=== PATIENT | male | born 1955 | race Caucasian/White ===

== ENCOUNTER 2020-01-11 16:53 | Observation (INO) | payer MEDICARE, MEDICAID, SELFPAY ==
--- NOTE | ~2020-01-11 | XR_ITS ---
EXAMINATION: XR hip BI 2V w AP pelvis DATE: 01/11/2020 19:46 INDICATION: Bilateral hip pain TECHNIQUE: AP view the pelvis and two views of each hip were obtained. COMPARISON: 11/15/2019 FINDINGS: There are changes of right total hip arthroplasty. There is no evidence of hardware failure or loosening. There is severe left hip osteoarthritis. No acute osseous abnormality is identified. B one alignment is normal. A Lange catheter is noted. The soft tissues are unremarkable. IMPRESSION: 1. Severe left hip osteoarthritis and changes of total right hip arthroplasty without acute abnormali ty. Reviewed, dictated and finalized at location A. GRADER IMPRESSION: 1. Severe left hip osteoarthritis and changes of total right hip arthroplasty w ithout acute abnormality.
[2020-01-11 16:54] VITALS: BP 124/87; PULSE 118; RESP 18; TEMP 36.8; O2SAT 99
--- NOTE | 2020-01-11 17:16 | ED.NAVMDI ---
HPI - Nausea/Vomiting/Diarrhea General Chief complaint: Nausea/Vomiting/Diarrhea Stated complaint: diarrhea Time Seen by Provider: 01/11/20 17:14 Source: patient and family Mode of arrival: EMS Limitations: no limitations History of Present Illness HPI Narrative: The pt is a 64 y/o male who presents to the ED, via EMS, c/o diarrhea. Pt states that he was sent to [facility] for rehabilitation following being at this hospital for his LLE giving out on him persistently. Pt states that he was having diarrhea prior to that, and states that it was eventually tested positive for C. diff. Pt's family states that he lost 10 days of therapy due to the infection, and he left today after his Medicaid ran out. Pt states that he now lives in independent living. His family also notes that the pt now has a catheter. Pt states that he had four episodes of diarrhea yesterday and four episodes today; he notes that he had been put on antibiotics for some time prior to leaving [facility], but discontinued this 2 days ago. Pt's family reports cloudy urine, and the pt notes that he is still experiencing issues with his LLE, with him being unable to get up from the toilet because of it. Pt denies ABD pain, N/V, fever, blood in stools, and lightheadedness. MD elicited complaint: diarrhea Onset (ago): unknown Associated nausea: No Associated abdominal pain: No Associated symptoms: other (LLE giving out on him, cloudy urine (Per pt's family)) Treatment prior to arrival: other (Antibiotics) Related Data Home Medications Medication Instructions Recorded Confirmed alfuzosin 10 mg tablet,extended 10 mg PO DAILY 10/16/19 01/11/20 release 24 hr finasteride 5 mg tablet 5 mg PO DAILY 10/16/19 01/11/20 mirabegron 50 mg tablet,extended 50 mg PO DAILY 10/16/19 01/11/20 release 24 hr triamcinolone acetonide 0.1 % 1 applic TOPICAL BID 10/16/19 01/11/20 topical ointment simvastatin 20 mg PO DAILY 11/23/19 01/11/20 acetaminophen 650 mg PO PRN PRN 01/11/20 01/11/20 triamcinolone acetonide 1 applic TOPICAL BID PRN 01/11/20 01/11/20 Allergies Allergy/AdvReac Type Severity Reaction Status Date / Time rivaroxaban [From Xarelto] AdvReac Other Verified 01/11/20 17:00 Review of Systems Review of Systems: All systems reviewed & are unremarkable except as noted in HPI and below Constitutional: Constitutional: Denies fever(s) Gastrointestinal: Gastrointestinal: Denies abdominal pain, Denies hematochezia, Reports diarrhea, Denies nausea and Denies vomiting Genitourinary: Genitourinary: Reports other (Cloudy urine (Per pt's family)) Neurologic: Reports other (Reports: LLE giving out on him; Denies: Lightheadedness) [facility] Past Medical History Medical History (Updated 01/11/20 @ 22:57 by Jadyn Evans MD) Anemia Asperger syndrome Chicken pox Chronic interstitial cystitis Frequent urinary tract infections Hyperlipidemia Hypertension Osteoarthritis Vitamin D deficiency Surgical History Surgical History History of bladder surgery History of right hip replacement History of tonsillectomy Social History Social History (Updated 01/11/20 @ 18:01 by Giovanni Boudreaux) Social History: The patient is single and lives with his father in independent living at [facility]. For quite some time he was ambulating with a cane due to chronic left hip pain, but is now ambulating with a walker as detailed above. His primary care providers Dr. Rachid Rios. He designates his sister, Karin Olivares, as his surrogate decision maker and he wishes to be a full code. He denies alcohol, tobacco, and drug use. Smoking status: Never smoker Alcohol intake: former Substance use: never Gender identity (if verbalized by the patient): Male Spiritual care concerns: No Agree to blood products: Yes Comments PCP: Dr. Rios Exam Narrative: Exam Narrative: GENERAL: Well-appearing, well-nourished,
[2020-01-11 17:56] VITALS: BP 122/83; BP 139/98; BP 142/89; PULSE 110; PULSE 116; PULSE 117
[2020-01-11 18:05] LABS: Basophils Absolute Auto 0.1 K/mm3 (0.0-0.1); Basophils Percent Auto 0.7 % (0.2-1.2); Eosinophils Absolute Auto 0.3 K/mm3 (0-0.3); Eosinophils Percent Auto 2.1 % (0-4.4); Hematocrit 38.1 % (42.0-52.0); Hemoglobin 11.8 g/dL (14.0-18.0); Immature Granulocyte Absolute 0.07 K/mm3 (0.00-0.031); Immature Granulocyte Percent A 0.5 % (0-0.5); Lymphocytes Absolute Auto 1.31 K/mm3 (0.9-3.2); Lymphocytes Percent Auto 10.1 % (18.3-44.2); Mean Corpuscular Hemoglobin 27.1 pg (26-34); Mean Corpuscular Volume 87.6 fl (80-100); Mean Platelet Volume 9.6 fl (7.4-10.4); Monocytes Absolute Auto 1.1 K/mm3 (0.1-0.6); Monocytes Percent Auto 8.3 % (2.6-8.5); Neutrophils Absolute Auto 10.2 K/mm3 (1.3-6.7); Neutrophils Percent Auto 78.3 % (45.5-73.1); Platelet Count Result 274 k/mm3 (150-375); Red Blood Count 4.35 M/mm3 (4.6-6.20); Red Cell Distribution Width 16.3 % (11.5-14.5)
[2020-01-11] MEDS: LACTATED RINGERS 1,000 ML 999 ML IV CONT (18:28)
[2020-01-11 18:40] LABS: Alanine Aminotransferase 23 U/L (4-50); Albumin Level 3.6 g/dL (3.5-5.1); Alkaline Phosphatase 186 U/L (38-126); Aspartate Amino Transferase 42 U/L (17-59); Bilirubin,Total 0.3 mg/dL (0.2-1.3); Blood Urea Nitrogen 15 mg/dL (9-20); Calcium 9.1 mg/dL (8.4-10.2); Carbon Dioxide 25 mmol/L (22-30); Chloride 101 mmol/L (98-107); Estimated CRCL calculation 61 ml/min; Estimated Glomerular Filt Rate > 60; Glucose 112 mg/dL (75-110); Potassium 3.7 mmol/L (3.4-5.0); Sodium 139 mmol/L (137-145)
--- NOTE | 2020-01-11 20:12 | PC.NURSE ---
pt unwilling to try to ambulate or transfer, family and pt, stated his left hip does not bear wt. pt reluctant, pt makes mention that he needs help, is unable to function in current condition.
[2020-01-11 20:14] VITALS: BP 146/84; PULSE 99; RESP 14; O2SAT 100
--- NOTE | 2020-01-11 22:22 | PC.NURSE ---
This patient, Lam James, was admitted to Medical Room 246-. Patient/family oriented to hospital policies and general routines including ID bracelet, bed and alarms, visiting hours, pain management, procedures, bathroom and other care routines, personal items, smoking policy, room service/diet, and visiting hours. Valuables list has been completed. Information on how to activate the Rapid Response Team has been discussed. Patient/Family are encouraged to report perceived risks to care and to ask questions if they do not understand what they are told or what they should do.
[2020-01-11 22:39] VITALS: BP 147/69; PULSE 88; RESP 18; TEMP 37; O2SAT 98
[2020-01-11 22:41] VITALS: BMI 30.1
--- NOTE | 2020-01-12 00:33 | PM.IMHP ---
H&P: HPI History of Present Illness Chief complaint: AMBULATORY DYSFUNCTION Narrative: This is a 64 year old male who is known to live at assisted living with his father and recently admitted to our hospitalist service and discharged 1 month ago after he was treated for acute renal failure and right lung pneumonia. He has been at [facility] where he is known to have developed diarrhea and tested positive for Clostridium difficile. The patient just finished a 10 day course of oral metronidazole two days ago. He continues to have diarrhea although he reports that the diarrhea is more formed then when he had c. diff. He denies any blood in his stool or abdominal pain. He also denies any fever, cough, chills, chest pain, or shortness of breath. He continues to have left hip pain and was previously ambulating altough now he cannot bear any weight on his left hip secondary to his advanced osteoarthritis. He is awaiting to have hip replacement surgery scheduled with Dr. Simmons but was told that he cannot have surgery until his kidney function normalizes. No other complaints tonight. Review of Systems Review of Systems: All systems reviewed & are unremarkable except as noted in HPI and below PMFSH Past Medical History Medical History Anemia Asperger syndrome Chicken pox Chronic interstitial cystitis Frequent urinary tract infections Hyperlipidemia Hypertension Osteoarthritis Vitamin D deficiency Surgical History Surgical History History of bladder surgery History of right hip replacement History of tonsillectomy Family History Family History Mother Family history of malignant neoplasm of esophagus, Onset Age: 76 Father CAD (coronary artery disease) Hypertension HLD (hyperlipidemia) Grandparent Cerebrovascular accident CAD (coronary artery disease) Kidney disease Social History Social History Social History: The patient is single and lives with his father in independent living at [facility]. For quite some time he was ambulating with a cane due to chronic left hip pain, but is now ambulating with a walker as detailed above. His primary care providers Dr. Rachid Rios. He designates his sister, Karin Olivares, as his surrogate decision maker and he wishes to be a full code. He denies alcohol, tobacco, and drug use. Smoking status: Never smoker Alcohol intake: former Substance use: never Gender identity (if verbalized by the patient): Male Spiritual care concerns: No Agree to blood products: Yes Meds Home Medications and Allergies Home Medications Medication Instructions Recorded Confirmed Type alfuzosin 10 mg tablet,extended 10 mg PO DAILY 10/16/19 01/11/20 History release 24 hr finasteride 5 mg tablet 5 mg PO DAILY 10/16/19 01/11/20 History mirabegron 50 mg tablet,extended 50 mg PO DAILY 10/16/19 01/11/20 History release 24 hr triamcinolone acetonide 0.1 % 1 applic TOPICAL BID 10/16/19 01/11/20 History topical ointment simvastatin 20 mg PO DAILY 11/23/19 01/11/20 History tolnaftate 1 applic TOPICAL Q12HR #45 gm 12/07/19 01/11/20 Rx acetaminophen 650 mg PO PRN PRN 01/11/20 01/11/20 History triamcinolone acetonide 1 applic TOPICAL BID PRN 01/11/20 01/11/20 History Allergies Allergy/AdvReac Type Severity Reaction Status Date / Time rivaroxaban [From Xarelto] AdvReac Other Verified 01/11/20 17:00 Vital Signs Vital Signs - 24 hr 01/11/20 16:54 01/11/20 17:56 01/11/20 20:14 Temperature 36.8 C Pulse Rate 118 H 117 H 99 Respiratory Rate 18 14 Blood Pressure 124/87 142/89 H 146/84 H Pulse Oximetry 99 100 01/11/20 22:39 Temperature 37.0 C Pulse Rate 88 Respiratory Rate 18 Blood Pressure 147/69 H Pulse Oximetry 98 Exam Const: Gen
[2020-01-12 05:50] VITALS: BP 116/57; PULSE 77; RESP 16; TEMP 36.8; O2SAT 97
[2020-01-12] MEDS: FINASTERIDE 5 MG TABLET PO (09:28)
[2020-01-12] MEDS: SIMVASTATIN 20 MG TABLET PO (09:28)
[2020-01-12] MEDS: MIRABEGRON 25 MG ER TABLET 50 MG PO (09:28)
[2020-01-12] MEDS: TRIAMCINOLONE ACET 0.1% OINT 15 GM TUBE 1 APPLIC TOPICAL ×2 (09:28→16:45)
[2020-01-12] MEDS: TOLNAFTATE 1% POWDER 45 GM BTL 1 APPLIC TOPICAL ×2 (09:28→20:52)
--- NOTE | 2020-01-12 11:35 | PM.IMPN ---
Progress Note: A&P Assessment and Plan (1) Ambulatory dysfunction: Code(s): R26.2 - Difficulty in walking, not elsewhere classified Status: Acute Assessment and Plan: Secondary to pain from left hip osteoarthritis, currently awaiting total hip replacement. Patient was able to ambulate with walker assistance this morning supervised by PT. PT and OT for evaluation Consider SNF placement - will await care coordination recommendations (2) Diarrhea: Qualifiers: Diarrhea type: unspecified type Qualified Code(s): R19.7 - Diarrhea, unspecified Code(s): R19.7 - Diarrhea, unspecified Status: Acute Assessment and Plan: Recently completed 10 days of oral metronidazole for Clostridium dificile colitis 2 days ago. A C. diff toxin assay was ordered in the ED, but will likely still remain positive as the antibiotic course was completed 2 days prior. Stools now formed, not watery, no mucus, no odor. Continue to monitor for diarrhea. (3) Leukocytosis: Qualifiers: Leukocytosis type: unspecified Qualified Code(s): D72.829 - Elevated white blood cell count, unspecified Code(s): D72.829 - Elevated white blood cell count, unspecified Status: Acute Assessment and Plan: WBC has improved since his last admission at 13.0, which appears to be his baseline. Continue to monitor CBC with differential (4) Anemia: Qualifiers: Anemia type: unspecified type Qualified Code(s): D64.9 - Anemia, unspecified Code(s): D64.9 - Anemia, unspecified Status: Chronic Assessment and Plan: Chronic anemia with H & H at baseline - 11.8 and 38.1% today No signs of acute blood loss Continue to monitor CBC and monitor for signs of hemodynamic instability. Transfusion prn. (5) Hypertension: Qualifiers: Hypertension type: unspecified Qualified Code(s): I10 - Essential (primary) hypertension Code(s): I10 - Essential (primary) hypertension Status: Chronic Assessment and Plan: Blood pressure evaluated today and stable at 116/57. Continue to monitor pressures. (6) Osteoarthritis: Qualifiers: Laterality: left Osteoarthritis location: hip Osteoarthritis type: unspecified Qualified Code(s): M16.12 - Unilateral primary osteoarthritis, left hip Code(s): M19.90 - Unspecified osteoarthritis, unspecified site Status: Chronic Assessment and Plan: S/p right total hip arthroplasty Follows with Dr. Simmons and has plans for left total hip, however he required nephrology clearance before surgery. The patient sees Dr. Hector and has an appointment on 01/16/2020 to determine if he is a surgical candidate. Advised to keep appointment Follow up with Dr. Hector and Dr. Simmons as an outpatient. Additional Plan Date of service was 01/11/2020 at 23:00 hrs. Subjective Date/time seen: 01/12/20 11:35 Interval history: Date of service: 01/12/2020 Mr. James is a 64 year old male with a history of Aspergers syndrome, osteoarthritis s/p total right hip arthroplasty, Clostridium dificile infection, hypertension, and acute kidney failure who is hospitalized for ambulatory dysfunction. He has significant osteoarthritis of the left hip and was unable to arise from the toilet on 01/11/2020 due to his hip giving out, prompting him to seek treatment. Additionally, he was recently treated for Clostridium dificile with 10 day course of Flagyl but continued to have ongoing diarrhea. He reports improvement in his left hip pain today. He was ambulating using a walker with the assistance of PT for approximately 1 hour this morning with minimal pain. Currently, he rates his pain as a 0 and when he is sitting in a chair, he rates it as a 3. He has not required pain medication. He states his bowel movements are now formed. They are not watery, there is no mucus or blood, and there is no odor. He is currently wearing depe
[2020-01-12 14:00] VITALS: BP 113/55; PULSE 91; RESP 18; TEMP 36.3; O2SAT 99
[2020-01-12 22:00] VITALS: BP 117/56; PULSE 87; RESP 20; TEMP 36.7; O2SAT 98
[2020-01-13 05:32] LABS: Alanine Aminotransferase 18 U/L (4-50); Alkaline Phosphatase 145 U/L (38-126); Aspartate Amino Transferase 27 U/L (17-59); Bilirubin,Total 0.5 mg/dL (0.2-1.3); Blood Urea Nitrogen 12 mg/dL (9-20); Calcium 8.7 mg/dL (8.4-10.2); Carbon Dioxide 26 mmol/L (22-30); Chloride 105 mmol/L (98-107); Estimated CRCL calculation 66 ml/min; Estimated Glomerular Filt Rate > 60; Glucose 94 mg/dL (75-110); Potassium 3.4 mmol/L (3.4-5.0); Sodium 141 mmol/L (137-145)
[2020-01-13 05:33] LABS: Basophils Absolute Auto 0.1 K/mm3 (0.0-0.1); Basophils Percent Auto 0.7 % (0.2-1.2); Eosinophils Absolute Auto 0.4 K/mm3 (0-0.3); Eosinophils Percent Auto 4.8 % (0-4.4); Hematocrit 33.8 % (42.0-52.0); Hemoglobin 10.5 g/dL (14.0-18.0); Immature Granulocyte Absolute 0.04 K/mm3 (0.00-0.031); Immature Granulocyte Percent A 0.4 % (0-0.5); Lymphocytes Absolute Auto 1.51 K/mm3 (0.9-3.2); Mean Corpuscular HGB Conc 31.1 g/dl (32-36); Mean Corpuscular Hemoglobin 27.3 pg (26-34); Mean Corpuscular Volume 87.8 fl (80-100); Monocytes Percent Auto 10.8 % (2.6-8.5); Neutrophils Absolute Auto 5.9 K/mm3 (1.3-6.7); Neutrophils Percent Auto 66.3 % (45.5-73.1); Platelet Count Result 229 k/mm3 (150-375); Red Blood Count 3.85 M/mm3 (4.6-6.20); Red Cell Distribution Width 16.5 % (11.5-14.5); White Blood Count 8.9 K/mm3 (4.5-10.0)
[2020-01-13 05:50] VITALS: BP 111/57; PULSE 75; RESP 20; TEMP 36.5; O2SAT 96
--- NOTE | 2020-01-13 07:00 | PM.CNNEP ---
Assessment and Plan Assessment and plan (1) Acute kidney failure: Qualifiers: Acute renal failure type: unspecified Qualified Code(s): N17.9 - Acute kidney failure, unspecified Code(s): N17.9 - Acute kidney failure, unspecified Status: Acute Assessment and Plan: The patient had acute kidney injury. This was due to rhabdomyolysis and dehydration. He recovered slowly. His creatinine is now 1.1. So he has had fairly complete resolution of his GONZALEZ. From the kidney standpoint I think it is okay to proceed with his hip replacement. There is always a small chance of some kidney toxicity but I think he is at his baseline risk. (2) History of Clostridioides difficile infection: Code(s): Z86.19 - Personal history of other infectious and parasitic diseases Status: Acute Assessment and Plan: He has no more diarrhea. (3) Anemia: Qualifiers: Anemia type: unspecified type Qualified Code(s): D64.9 - Anemia, unspecified Code(s): D64.9 - Anemia, unspecified Status: Chronic Assessment and Plan: Hemoglobin is up to 10.5. (4) Hypertension: Qualifiers: Hypertension type: unspecified Qualified Code(s): I10 - Essential (primary) hypertension Code(s): I10 - Essential (primary) hypertension Status: Chronic Assessment and Plan: His blood pressure is well controlled. History of Present Illness Reason for Consult Consult date: 01/13/20 Chief Complaint Chief complaint: AMBULATORY DYSFUNCTION History of Present Illness Narrative: Lam is a very pleasant 64-year-old gentleman who had acute kidney injury. And rhabdomyolysis causing acute tubular necrosis. His creatinine yuko fairly high but he never needed dialysis. By discharge it was down 5.7. Couple of weeks ago was in the threes. The patient is going to get have a left hip replacement. Dr. Simmons is asking for renal clearance. The patient denies any bloody urine, foamy urine, kidney stones, or bladder infections. Is no chest pain or shortness of breath. He has been feeling well except for the pain in his left hip. Review of Systems Constitutional: Constitutional: Reports no additional constitutional complaints Eyes: Eyes: Reports no additional eye complaints ENT: Reports system reviewed and no additional complaints, except as documented Cardiovascular: Cardiovascular: Reports no additional cardiovascular complaints Respiratory: Respiratory: Reports no additional respiratory complaints Gastrointestinal: Gastrointestinal: Reports no additional gastrointestinal complaints Genitourinary: Genitourinary: Reports no additional male genitourinary complaints Musculoskeletal: Musculoskeletal: Reports no additional musculoskeletal complaints Integumentary/Breasts: Skin/Breast: Reports system reviewed and no additional complaints, except as docu Neurologic: Reports system reviewed and no additional complaints, except as documented Psychiatric: Psychiatric: Reports no additional psychiatric complaints PMFSH Past Medical History Medical History Anemia Asperger syndrome Chicken pox Chronic interstitial cystitis Frequent urinary tract infections Hyperlipidemia Hypertension Hypokalemia Osteoarthritis Pneumonia involving right lung Rhabdomyolysis Vitamin D deficiency Surgical History Surgical History History of bladder surgery History of right hip replacement History of tonsillectomy Family History Family History Mother Family history of malignant neoplasm of esophagus, Onset Age: 76 Father CAD (coronary artery disease) Hypertension HLD (hyperlipidemia) Grandparent Cerebrovascular accident CAD (coronary artery disease) Kidney disease Social History Social History (Reviewed
[2020-01-13] MEDS: TOLNAFTATE 1% POWDER 45 GM BTL 1 APPLIC TOPICAL (08:27)
[2020-01-13] MEDS: SIMVASTATIN 20 MG TABLET PO (08:28)
[2020-01-13] MEDS: MIRABEGRON 25 MG ER TABLET 50 MG PO (08:28)
[2020-01-13] MEDS: FINASTERIDE 5 MG TABLET PO (08:28)
[2020-01-13] MEDS: TRIAMCINOLONE ACET 0.1% OINT 15 GM TUBE 1 APPLIC TOPICAL (08:30)
--- NOTE | 2020-01-13 11:48 | PM.IMPN ---
Progress Note: A&P Assessment and Plan (1) Ambulatory dysfunction: Code(s): R26.2 - Difficulty in walking, not elsewhere classified Status: Acute Assessment and Plan: Secondary to pain from severe left hip osteoarthritis. PT/OT evaluations here. Had long discussion with patient and family regarding situation. Patient just released from SNF on Monday. Home health arranged prior to discharge with care coordination confirming today. Discussed options for discharge disposition as patient is medically stable to discharge today. Family wishes to continue with decision for home health versus snf placement. Plan to discharge home today after arrangements confirmed. (2) Osteoarthritis: Qualifiers: Laterality: left Osteoarthritis location: hip Osteoarthritis type: unspecified Qualified Code(s): M16.12 - Unilateral primary osteoarthritis, left hip Code(s): M19.90 - Unspecified osteoarthritis, unspecified site Status: Chronic Assessment and Plan: Severe left hip osteoarthritis. Already has seen Dr. Simmnos with plan for left TKA but was needing clearance from nephrology due to recent acute renal failure. Creatinine remains normal at 1.[address] Hector did see patient this morning and has given approval. Explained to patient and family will now need to contact Dr. Simmons's office to arrange for scheduling of elective left TKA. (3) Diarrhea: Qualifiers: Diarrhea type: unspecified type Qualified Code(s): R19.7 - Diarrhea, unspecified Code(s): R19.7 - Diarrhea, unspecified Status: Acute Assessment and Plan: Recently completed 10 days of oral metronidazole for Clostridium dificile colitis 2 days ago. No liquid stools here with C. diff toxin unable to be done as result. Explained may have some residual looser stool or more frequent stool for awhile. (4) Leukocytosis: Qualifiers: Leukocytosis type: unspecified Qualified Code(s): D72.829 - Elevated white blood cell count, unspecified Code(s): D72.829 - Elevated white blood cell count, unspecified Status: Acute Assessment and Plan: Now resolved with WBC 8.9 today. (5) Anemia: Qualifiers: Anemia type: unspecified type Qualified Code(s): D64.9 - Anemia, unspecified Code(s): D64.9 - Anemia, unspecified Status: Chronic Assessment and Plan: Chronic anemia. Hemoglobin 10.5 today and stable. (6) Hypertension: Qualifiers: Hypertension type: unspecified Qualified Code(s): I10 - Essential (primary) hypertension Code(s): I10 - Essential (primary) hypertension Status: Chronic Assessment and Plan: Blood pressure evaluated reviewed on 01/13/2020 and stable. Not on medication. Will continue to monitor while here. (7) DVT prophylaxis: Code(s): Z29.9 - Encounter for prophylactic measures, unspecified Status: Acute Assessment and Plan: Up ad kei. Time Spent With Patient Time with patient: 15 - 25 minutes Subjective Date/time seen: 01/13/20 11:48 Interval history: Date of Service: 01/13/2020. Admitted with ambulatory dysfunction due to severe osteoarthritis in left hip. Sister and father in room. Patient continues to have problems with difficulty ambulating due to severe left hip pain. Physical therapy was able to get him up with walker yesterday but only very short distance. Patient complains of still having several pasty type stools but no liquid stools. No abdominal pain. No chest pain. No shortness of breath. Review of Systems Constitutional: Constitutional: Denies chills and Denies fever(s) ENT: Denies dysphagia Cardiovascular: Cardiovascular: Denies chest pain Respiratory: Respiratory: Denies dyspnea Gastrointestinal: Gastrointestinal: Denies abdominal pain, Denies nausea and Denies vomiting Comments: More frequent stools but no liquid stools Genitourinary: Com
--- NOTE | 2020-01-13 15:29 | PCPTNOTE ---
The PT session was unable to be completed today. Will continue per Plan of Care frequency and duration.
[2020-01-13] MEDS: LOPERAMIDE HCL 2 MG CAPSULE 4 MG PO (18:32)
--- NOTE | 2020-01-13 18:39 | PM.DS ---
DS: Diagnosis Admitting Diagnosis Admitting Diagnosis: Difficulty in walking, not elsewhere classified Discharge Diagnosis (1) Ambulatory dysfunction: Code(s): R26.2 - Difficulty in walking, not elsewhere classified Status: Acute (2) Osteoarthritis: Qualifiers: Laterality: left Osteoarthritis location: hip Osteoarthritis type: unspecified Qualified Code(s): M16.12 - Unilateral primary osteoarthritis, left hip Code(s): M19.90 - Unspecified osteoarthritis, unspecified site Status: Chronic (3) Diarrhea: Qualifiers: Diarrhea type: unspecified type Qualified Code(s): R19.7 - Diarrhea, unspecified Code(s): R19.7 - Diarrhea, unspecified Status: Acute (4) Leukocytosis: Qualifiers: Leukocytosis type: unspecified Qualified Code(s): D72.829 - Elevated white blood cell count, unspecified Code(s): D72.829 - Elevated white blood cell count, unspecified Status: Acute (5) Anemia: Qualifiers: Anemia type: unspecified type Qualified Code(s): D64.9 - Anemia, unspecified Code(s): D64.9 - Anemia, unspecified Status: Chronic (6) Hypertension: Qualifiers: Hypertension type: unspecified Qualified Code(s): I10 - Essential (primary) hypertension Code(s): I10 - Essential (primary) hypertension Status: Chronic Assessment and Plan: Blood pressure evaluated reviewed on 01/13/2020 and stable. Not on medication. Will continue to monitor while here. DS: Summary Hospital Course Reason for hospitalization: Diarrhea and difficulty walking. Hospital Course: Date of Service of Discharge: January 13, 2020. History of Present Illness: Patient is a 64-year-old gentleman recently admitted and discharged 1 month ago after treatment for acute renal failure, rhabdomyolysis and right lung pneumonia. Patient had been in [facility] where he did develop diarrhea testing positive for Clostridium difficile. He did finish a 10 day course of oral metronidazole 2 days prior to presentation. Patient reports continued to have loose stools although not watery and more formed. No blood in stool or abdominal pain. No fever, cough, chills, chest pain or shortness breath. He continues to have significant left hip pain and now continues to have difficulty bearing weight on his left hip due to advanced osteoarthritis. Patient was discharged from [facility] on the same day he presented to our facility. In the emergency room, there were no acute changes but patient was placed in observation due to ambulatory dysfunction. Course in Hospital: On admission, patient was placed on the medical floor where he remained for the duration of his stay. C diff toxin essay was ordered from the emergency room but unable to be obtained as patient did not have any liquid stools. He did have some more frequent stools but no fever, nausea, abdominal pain or vomiting. WBC was slightly elevated but decreased from his last admission 1 month ago. WBC normalized during his stay. Patient and family were more concerned about difficulties with his ambulation due to the advanced osteoarthritis in his left hip. New imaging done in the emergency room only showed the severe osteoarthritis. Patient was concerned about having clearance from his bank president, Dr. Hector, as his orthopedic surgeon, Dr. Simmons, was requesting this prior to scheduling any surgery. Patient's creatinine was back at his baseline throughout his stay. Dr. Hector did graciously agree to see the patient while in hospital with notation he feels patient may proceed with scheduling surgery. Patient was seen by physical and occupational therapy. Patient could only walk a very short distance with a walker. Long discussions were held with patient and family regarding next steps in patient's care. It was explained to the patient and his family an elective left total hip replacement could not be
== END 2020-01-13 18:40 | disposition home health service (06) ==
LOC: ANHED 21:22 → ANH2MED 21:34
PROVIDERS: Physician Assistant; Admitting Provider Family Medicine; Emergency Provider General Practice; PCP Internal Medicine; Visit Provider Hospitalist
DX: M16.12 Unilateral primary osteoarthritis, left hip (principal); R26.2 Difficulty in walking, not elsewhere classified; G89.29 Other chronic pain; R19.7 Diarrhea, unspecified; D72.829 Elevated white blood cell count, unspecified; D64.9 Anemia, unspecified; I10 Essential (primary) hypertension; F84.5 Asperger's syndrome; E78.5 Hyperlipidemia, unspecified; Z86.19 Personal history of other infectious and parasitic diseases; Z96.641 Presence of right artificial hip joint
CPT/HCPCS: 36415; 73521; 80053; 85025; 87081; 97161; 97165; 97530; 97535; 99285; A9270; G0378; J7120

== ENCOUNTER 2020-01-16 18:00 | Inpatient (IN) | payer MEDICARE, MEDICAID, SELFPAY ==
--- NOTE | ~2020-01-16 | US_ITS ---
US retroperitoneal comp 01/17/2020 16:01 Procedure: Realtime transabdominal ultrasound of the kidneys and bladder. Indication: Bilateral renal cysts. Comparison: CT dated 01/16/2020 Findings: In the right kidney there are hypoechoic masses measuring 13 mm respectively with low level internal echoes. No significant posterior features. In the left kidney there is a 1 cm left renal cy st. There are additional hypoechoic masses of the left kidney measuring 11 and 1.7 cm respectively, b oth with low level internal echoes. The right kidney measures 8.1 cm and left kidney measures 10.8 cm . Bladder is decompressed with catheter. Impression: 1: Indeterminate bilateral renal masses which are not consistent with simple cyst by sonographic crit eria. Correlation with MRI is recommended to exclude enhancement. Reviewed, dictated and finalized at location A. ING TEACHER Impression: 1: Indeterminate bilateral renal masses which are not consistent with simple cy st by sonographic criteria. Correlation with MRI is recommended to exclude enha ncement.
--- NOTE | ~2020-01-16 | CT_ITS ---
EXAMINATION: CT abdomen pelvis w con DATE: 01/16/2020 20:55 INDICATION: Diarrhea. Leukocytosis. TECHNIQUE: Computed tomography (CT) of the abdomen and pelvis was performed with 100 cc Omnipaque 350 intravenous contrast. The dose-length product was 1249.14 mGy-cm. Automated exposure control and ite rative reconstruction technique were employed. Automated exposure control and iterative reconstructio n technique were employed. COMPARISON: CT dated 11/23/2019 FINDINGS: There is right lower lobe airspace disease posteriorly with areas of tree-in-bud configurat ion, suspicious for pneumonia. Calcified granuloma right middle lobe. Dependent atelectasis. No significant pleural or pericardial effusion. Heart size is normal. There are multiple hypervascular masses throughout the spleen which have an infiltrative appearance. The spleen is enlarged measuring 13.6 cm craniocaudal. Stable 2 cm left adrenal mass, likely benign. Gallbladder is present. Nonobstructive bowel gas pattern. There is diffuse abnormal thickening of the colon, most severe in the descending, sigmoid colon and rectum. There are ventral abdominal wall her ting above the umbilicus and left inguinal hernia, both containing nonobstructed colon. Bladder is dec ompressed by Lange catheter. No significant vascular abnormality. No lymphadenopathy. Normal appendix. There is an indeterminate l eft renal mass measuring 1.8 cm with density measurement of 46 Hounsfield units. There is an 11 mm hy podense right renal mass, most likely benign cysts. There is an 8 mm indeterminate right renal mass, too small to characterize. No free air or free fluid. There is a right hip arthroplasty. Severe osteo arthritis of the left hip. There is lumbar spondylosis with retrolisthesis at L2-3 and L3-4. IMPRESSION: 1. Pancolitis, most likely infectious. 2: Innumerable poorly circumscribed hypovascular masses of the spleen which is enlarged. Consider jeimy roabscesses, metastatic disease and lymphoma. 3: Supraumbilical ventral abdominal wall hernia and left inguinal hernias both containing nonobstruct ed colon. 4: Indeterminate bilateral renal masses. Recommend correlation with ultrasound on a nonemergent basi s. Reviewed, dictated and finalized at location A. OW ANALYST IMPRESSION: 1. Pancolitis, most likely infectious. 2: Innumerable poorly circumscribed hypovascular masses of the spleen which is enlarged. Consider microabscesses, metastatic disease and lymphoma. 3: Supraumbilical ventral abdominal wall hernia and left inguinal hernias both containing nonobstructed colon. 4: Indeterminate bilateral renal masses. Recommend correlation with ultrasound on a nonemergent basis.
--- NOTE | ~2020-01-16 | XR_ITS ---
EXAMINATION: XR chest 2V 01/16/2020 19:37 INDICATION: Generalized weakness with cough PROCEDURE: 2 view chest COMPARISON: Comparison to multiple prior studies sequentially, with oldest reviewed study dated 11/2019. FINDINGS: The lungs are clear. The cardiomediastinal silhouette is within normal limits. There are no pleural effusions. There is no pneumothorax suspected. IMPRESSION: 1: NO ACUTE CARDIOPULMONARY DISEASE. Reviewed, dictated and finalized at Location A. Reviewed, dictated and finalized at location A. R APPLICATIONS DEVELOPMENT ENGINEER
[2020-01-16 18:01] VITALS: RESP 16
[2020-01-16 18:14] VITALS: BP 155/93; PULSE 111; RESP 25; TEMP 36.6; O2SAT 95
[2020-01-16 19:00] VITALS: BP 138/72; PULSE 104; RESP 16; O2SAT 95
--- NOTE | 2020-01-16 19:03 | ECG_ITS ---
Measurements Intervals Start Rate: 110 P: 52 ND: 153 QRS: -30 QRSD: 100 T: 78 QT: 356 QTc: 482 Interpretive Statements SINUS TACHYCARDIA POSSIBLE LEFT ATRIAL ENLARGEMENT DELAYED PRECORDIAL R/S TRANSITION BORDERLINE ST-T WAVE ABNORMALITY- LATERAL LEADS ABNORMAL ECG Electronically Signed On 01-17-2020 7:06:52 SUPERVISOR AUDIT CLERKS by Silverio García D.O.
--- NOTE | 2020-01-16 19:15 | PC.NURSE ---
assumed care of pt at this time. report from thuy white
[2020-01-16] MEDS: SODIUM CHLORIDE 0.9% IV 1,000 ML 999 ML IV CONT ×2 (19:38→21:24)
[2020-01-16 19:39] LABS: Hematocrit 39.9 % (42.0-52.0); Hemoglobin 12.9 g/dL (14.0-18.0); Mean Corpuscular HGB Conc 32.3 g/dl (32-36); Mean Corpuscular Hemoglobin 27.5 pg (26-34); Mean Corpuscular Volume 85.1 fl (80-100); Mean Platelet Volume 8.9 fl (7.4-10.4); Platelet Count Result 278 k/mm3 (150-375); Red Blood Count 4.69 M/mm3 (4.6-6.20); Red Cell Distribution Width 16.2 % (11.5-14.5); White Blood Count 31.9 K/mm3 (4.5-10.0)
--- NOTE | 2020-01-16 19:40 | ED.WEAKNESS ---
HPI - Weakness General Chief complaint: Weakness <Mindy Mcdonald PA-C - Last Filed: 01/16/20 22:42> Stated complaint: weakness <JERRI Berger Last Filed: 01/16/20 22:42> Time Seen by Provider: 01/16/20 18:45 <JERRI Berger Last Filed: 01/16/20 22:42> Source: patient and family <JERRI Berger Last Filed: 01/16/20 22:42> Mode of arrival: EMS <JERRI Berger Last Filed: 01/16/20 22:42> Limitations: no limitations <Mindy Mcdonald PA-C - Last Filed: 01/16/20 22:42> History of Present Illness HPI Narrative: This is a 64 year old male that presents to the ER for generalized weakness x 3 days. Reports he was just discharged from the hospital here three days ago. Reports since he has not been able to get around at home. Reports he has not been eating or drinking much. Reports he is having diarrhea multiple times daily. Also reports a productive cough and rhinorrhea. Denies fever, chest pain, shortness of breath, congestion, sore throat, abdominal pain, or vomiting. <Mindy Mcdonald PA-C - Last Filed: 01/16/20 22:42> Related Data Home medications: Home Medications Medication Instructions Recorded Confirmed alfuzosin 10 mg tablet,extended 10 mg PO DAILY 10/16/19 01/11/20 release 24 hr finasteride 5 mg tablet 5 mg PO DAILY 10/16/19 01/11/20 mirabegron 50 mg tablet,extended 50 mg PO DAILY 10/16/19 01/11/20 release 24 hr triamcinolone acetonide 0.1 % 1 applic TOPICAL BID 10/16/19 01/11/20 topical ointment simvastatin 20 mg PO DAILY 11/23/19 01/11/20 acetaminophen 650 mg PO PRN PRN 01/11/20 01/11/20 <JERRI Berger Last Filed: 01/16/20 22:42> Allergies/Adverse reactions: Allergies Allergy/AdvReac Type Severity Reaction Status Date / Time rivaroxaban [From Xarelto] AdvReac Other Verified 01/16/20 18:05 <Mindy Mcdonald PA-C - Last Filed: 01/16/20 22:42> Review of Systems Review of Systems: Narrative: CONSTITUTIONAL: Denies fever ENT: Reports rhinorrhea. Denies congestion, sore throat, or otalgia. CARDIOVASCULAR: Denies chest pain RESPIRATORY: Reports cough. Denies dyspnea. GASTROINTESTINAL: Reports diarrhea. Denies abdominal pain, nausea, vomiting GENITOURINARY: Denies hematuria. MUSCULOSKELETAL: Reports joint pain, and myalgia. NEUROLOGIC: Reports weakness. <Mindy Mcdonald PA-C - Last Filed: 01/16/20 22:42> All systems reviewed & are unremarkable except as noted in HPI and below <Mindy Mcdonald PA-C - Last Filed: 01/16/20 22:42> PMFSH Social History Social History: Social History Social History: The patient is single and lives with his father in independent living at [facility]. For quite some time he was ambulating with a cane due to chronic left hip pain, but is now ambulating with a walker as detailed above. His primary care providers Dr. Rachid Rios. He designates his sister, Karin Olivares, as his surrogate decision maker and he wishes to be a full code. He denies alcohol, tobacco, and drug use. Smoking status: Never smoker Alcohol intake: former Substance use: never Gender identity (if verbalized by the patient): Male Spiritual care concerns: No Agree to blood products: Yes <Mindy Mcdonald PA-C - Last Filed: 01/16/20 22:42> Exam Narrative: Exam Narrative: GENERAL: Well-appearing, well-nourished, and in no acute distress. HEAD: Normocephalic, atraumatic. EYES: PERRLA and EOMI. ENT: Nares clear, no rhinorrhea or epistaxis. Mucous membranes moist. Oropharynx without tonsillar hypertrophy exudate or other lesions. Bilateral TMs pearly machado non-bulging NECK: Supple. No adenopathy or masses. CHEST: Clear to auscultation. No respiratory distress. No wheezes rales or rhonchi HEART: Regular rate and rhythm. No murmur heard. Normal peripheral pulses. ABDOMEN: Soft, nontender, nondistended, normal active bowel sounds. EXTREMI
[2020-01-16 19:42] LABS: INR 1.2; Prothrombin Time 14.4 Seconds (11.1-14.7)
[2020-01-16 19:43] LABS: Partial Thromboplastin Time 33.3 SECONDS (22.3-36.8)
[2020-01-16 19:44] LABS: Lactic Acid Reflex 1.2 mmol/L (0.7-2.1)
[2020-01-16 19:49] LABS: Alanine Aminotransferase 17 U/L (4-50); Albumin Level 3.4 g/dL (3.5-5.1); Alkaline Phosphatase 174 U/L (38-126); Aspartate Amino Transferase 22 U/L (17-59); Bilirubin,Total 0.6 mg/dL (0.2-1.3); Blood Urea Nitrogen 20 mg/dL (9-20); Calcium 8.8 mg/dL (8.4-10.2); Carbon Dioxide 22 mmol/L (22-30); Chloride 96 mmol/L (98-107); Creatine Kinase 60 U/L (55-170); Estimated CRCL calculation 52 ml/min; Estimated Glomerular Filt Rate 51; Glucose 153 mg/dL (75-110); Potassium 3.7 mmol/L (3.4-5.0); Sodium 135 mmol/L (137-145)
[2020-01-16 19:56] LABS: Add Urine Microscopic? YES; Appearance Urine Cloudy (Clear); Bacteria Urine Trace /hpf; Bilirubin Urine Negative (Negative); Blood Urine 2+ (Negative); Color Urine Amber (Yellow); Glucose Urine UA Negative (Negative); Hyaline Casts Urine 15-19 /lpf; Ketones Urine Trace mg/dL (Negative); Leukocyte Esterase Ur 3+ LEU/UL (Negative); Mucus Urine Heavy /lpf; Nitrate Urine Negative (Negative); Protein Urine 2+ mg/dL (Negative); RBC Urine >75 /hpf (0-2); Specific Grav Ur 1.021 (1.001-1.035); Squamous Epithelial Cell Urine Occasional /hpf (Few); Urobilinogen Urine Negative mg/dL (<2.0); WBC Clumps Urine Present /HPF; WBC Urine >75 /hpf
[2020-01-16 19:58] LABS: CRP 26.3 mg/dL (<1.0)
[2020-01-16 20:10] LABS: Band Neutrophils Percent 1 % (0-6); Hypochromasia 1+ (NORMAL); Lymphocytes Absolute Manual 0.63 K/mm3 (1.1-4.5); Monocytes Absolute Manual 1.27 K/mm3 (0.1-0.90); Monocytes Percent Manual 4 % (3-9); Neutrophils Absolute Manual 29.98 K/mm3 (1.3-6.7); Neutrophils Percent Manual 93 % (46-73); Platelet Estimate Adequate (Adequate); Total Cells Counted 100
[2020-01-16 21:23] VITALS: BP 123/65; PULSE 107; RESP 13; TEMP 36.9; O2SAT 96
[2020-01-16 23:05] VITALS: BP 142/74; PULSE 102; RESP 23; O2SAT 95
[2020-01-16 23:40] VITALS: BP 127/72; PULSE 110; RESP 20; TEMP 37.9; O2SAT 97; BMI 28.5
--- NOTE | 2020-01-16 23:41 | ADMGEN ---
This patient, Lam James, was admitted to 3 [facility] Surg Room 319-01. Patient/family oriented to hospital policies and general routines including ID bracelet, bed and alarms, visiting hours, pain management, procedures, bathroom and other care routines, personal items, smoking policy, room service/diet, and visiting hours. Valuables list has been completed. Information on how to activate the Rapid Response Team has been discussed. Patient/Family are encouraged to report perceived risks to care and to ask questions if they do not understand what they are told or what they should do.
[2020-01-17] MEDS: SODIUM CHLORIDE 0.9% IV 1,000 ML 125 ML IV CONT ×2 (00:08→13:26)
[2020-01-17 06:00] VITALS: BP 122/64; PULSE 103; RESP 20; TEMP 37.9; O2SAT 96
[2020-01-17] MEDS: VANCOMYCIN ORAL 125 MG/2.5 ML SYRUP PO ×2 (06:01→11:51)
[2020-01-17] MEDS: MIRABEGRON 25 MG ER TABLET 50 MG PO (09:50)
[2020-01-17] MEDS: SIMVASTATIN 20 MG TABLET PO (09:50)
[2020-01-17] MEDS: FINASTERIDE 5 MG TABLET PO (09:50)
--- NOTE | 2020-01-17 11:59 | PM.IMHP ---
H&P: HPI History of Present Illness Chief complaint: SEPSIS,PANCOLITIS <Shelley Ogden PA-C - Last Filed: 01/17/20 17:07> Narrative: Date of service of history and physical: 01/17/2020 Date of admission: 01/16/2020 aLm James is a 64 year old male with a history of HTN, HLD, Asperger syndrome, interstitial cystitis and osteoarthritis who presented to the facility via EMS on 01/16/2020 with a chief complaint of diarrhea. The patient had been previously admitted on 01/11 for diarrhea and ambulatory dysfunction. He is seen today with his sister, who he asks to explain his present illness today. She states that he had been previously admitted in October of 2019 for pneumonia and GONZALEZ, and he had been treated with oral Vancomycin for diarrhea. He was discharged to [facility] for therapy, where he tested positive and was treated for C. Diff colitis with a 10 day course of antibiotic that they are unsure of, but I believe was oral metronidazole per chart review. He was then discharged from [facility]. On the day he returned home to independent living, he was having consistent episodes of diarrhea and was then admitted to the hospital on 01/11. At the time his stools were soft but formed and he was discharged on 01/13 with home health. A C. diff assay was not performed as he was not having liquid stools. His sister, Karin, states that he is a poor historian and, although he denied diarrhea, she witnessed him continue to have loose stools. She reports he has been having loose stools for two months with very few days without an episode diarrhea. She states within the past 16 hours, he has had 4 episodes of explosive diarrhea in large volumes that she describes as dark brown/black, streaked with green, and strong odor. These episodes come on without warning. There is no associated abdominal pain, cramping, melena, or hematochezia. She notes his bottom is extremely broken down from frequent episodes of diarrhea. She also reports that his consistent diarrhea has made him dehydrated and weak, noting that he has lost 20 pounds since his hospitalization in October. He is unable to get up without assistance, partially due to severe left hip pain and partially due to his increasing weakness. He is scheduled with Dr. Simmons for a total left hip replacement in January. Karin also reports concern about a wet cough that has been going on for several weeks. The patient denies chest pain, shortness of breath, difficulty lying flat, or difficulty sleeping. He does report decreased appetite. Additionally, the patient has a Lange catheter in place and has consistently been using a Lange since October. He states the Lange was removed for a short period of time but he was unable to urinate on his own, so a new Lange was placed. He sees a urologist. Karin is very concerned about Mr. James and reports that she is considering having him transferred to [facility] as she is familiar with a physician there, but she would like to wait for results before pursuing further action regarding a transfer. <Shelley Ogden PA-C - Last Filed: 01/17/20 17:07> Review of Systems Review of Systems: Narrative: A 12 point review of systems was reviewed and unremarkable except as noted in HPI. <Shelley Ogden PA-C - Last Filed: 01/17/20 17:07> [facility] Past Medical History Medical History: Medical History (Updated 01/17/20 @ 15:49 by Shelley Ogden PA-C) Anemia Asperger syndrome Chicken pox Chronic interstitial cystitis Dysphagia Frequent urinary tract infections Hyperlipidemia Hypertension Osteoarthritis Rhabdomyolysis Thrombocytopenia Transaminasemia Vitamin D deficiency <Shelley Ogden PA-C - Last Filed: 01/17/20 17:07> Surgical History Surgical History: Surgical History History of bladder surgery History of right hip replacement History of tonsillectomy <Shelley Ogden PA-C - Last F
[2020-01-17 14:28] VITALS: BMI 28.5
[2020-01-17 15:24] VITALS: BP 110/53; PULSE 99; RESP 16; TEMP 37.4; O2SAT 96
[2020-01-17] MEDS: metroNIDAZOLE 500 MG/ISO 100ML 500 MG/100 ML BAG 100 MG IVPB (18:20)
[2020-01-17] MEDS: SACCHAROMYCES BOULARDII 250 MG CAPSULE PO (18:20)
[2020-01-17] MEDS: FIDAXOMICIN 200 MG TABLET PO (21:20)
[2020-01-17 21:42] VITALS: BP 118/68; PULSE 94; RESP 16; TEMP 36.8; O2SAT 99
[2020-01-18] MEDS: SODIUM CHLORIDE 0.9% IV 1,000 ML 125 ML IV CONT (00:18)
[2020-01-18] MEDS: metroNIDAZOLE 500 MG/ISO 100ML 500 MG/100 ML BAG 100 MG IVPB ×4 (00:21→18:06)
[2020-01-18 06:00] VITALS: BP 110/61; PULSE 87; RESP 18; TEMP 36.7; O2SAT 98
[2020-01-18 06:44] LABS: Basophils Absolute Auto 0.1 K/mm3 (0.0-0.1); Basophils Percent Auto 0.4 % (0.2-1.2); Eosinophils Absolute Auto 0.2 K/mm3 (0-0.3); Hematocrit 33.2 % (42.0-52.0); Hemoglobin 10.4 g/dL (14.0-18.0); Immature Granulocyte Absolute 0.62 K/mm3 (0.00-0.031); Immature Granulocyte Percent A 2.7 % (0-0.5); Lymphocytes Absolute Auto 0.97 K/mm3 (0.9-3.2); Lymphocytes Percent Auto 4.2 % (18.3-44.2); Mean Corpuscular HGB Conc 31.3 g/dl (32-36); Mean Corpuscular Hemoglobin 27.3 pg (26-34); Mean Corpuscular Volume 87.1 fl (80-100); Mean Platelet Volume 9.3 fl (7.4-10.4); Monocytes Absolute Auto 1.9 K/mm3 (0.1-0.6); Monocytes Percent Auto 8.1 % (2.6-8.5); Neutrophils Absolute Auto 19.3 K/mm3 (1.3-6.7); Neutrophils Percent Auto 83.6 % (45.5-73.1); Platelet Count Result 228 k/mm3 (150-375); Red Blood Count 3.81 M/mm3 (4.6-6.20); Red Cell Distribution Width 16.6 % (11.5-14.5); White Blood Count 23.1 K/mm3 (4.5-10.0)
[2020-01-18 06:52] LABS: Lactic Acid 0.6 mmol/L (0.7-2.1)
[2020-01-18] MEDS: FIDAXOMICIN 200 MG TABLET PO ×2 (08:24→20:08)
[2020-01-18] MEDS: SACCHAROMYCES BOULARDII 250 MG CAPSULE PO ×3 (08:24→18:06)
[2020-01-18] MEDS: FINASTERIDE 5 MG TABLET PO (08:24)
[2020-01-18] MEDS: MIRABEGRON 25 MG ER TABLET 50 MG PO (08:25)
[2020-01-18] MEDS: SIMVASTATIN 20 MG TABLET PO (08:25)
[2020-01-18 09:03] LABS: Alanine Aminotransferase 14 U/L (4-50); Albumin Level 2.4 g/dL (3.5-5.1); Alkaline Phosphatase 118 U/L (38-126); Aspartate Amino Transferase 22 U/L (17-59); Bilirubin,Total 0.3 mg/dL (0.2-1.3); Blood Urea Nitrogen 17 mg/dL (9-20); Calcium 8.1 mg/dL (8.4-10.2); Carbon Dioxide 18 mmol/L (22-30); Chloride 104 mmol/L (98-107); Estimated CRCL calculation 54 ml/min; Estimated Glomerular Filt Rate > 60; Glucose 77 mg/dL (75-110); Sodium 138 mmol/L (137-145)
--- NOTE | 2020-01-18 10:24 | WPDGICN ---
Assessment and Plan Assessment and plan (1) C. difficile colitis: Code(s): A04.72 - Enterocolitis due to Clostridium difficile, not specified as recurrent Status: Acute Assessment and Plan: started on dificid and flagyl, it seems that he never recovered from last episode of C diff. eventually he will need a colonoscopy and egd (last colonoscopy 10 years ago), sister is concerned of ongoing weight loss and failure to thrive, also findings in spleen (differential includes microabscesses, metastatic disease and lymphoma). Pending blood cultures, get LDH, further work up at [facility] (malignancy is a consideration) (2) Pancolitis: Code(s): K51.00 - Ulcerative (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 complications Status: Acute Assessment and Plan: C diff colitis, on treatment now (3) Leukocytosis: Qualifiers: Leukocytosis type: unspecified Qualified Code(s): D72.829 - Elevated white blood cell count, unspecified Code(s): D72.829 - Elevated white blood cell count, unspecified Status: Acute (4) Splenic mass: Code(s): R16.1 - Splenomegaly, not elsewhere classified Status: Acute Assessment and Plan: on iv abx now, patient will be transferred to [facility] (5) Sepsis: Qualifiers: Acute renal failure type: unspecified Sepsis acute organ dysfunction status: with acute organ dysfunction Sepsis type: sepsis due to unspecified organism Severe sepsis acute organ dysfunction type: acute renal failure Severe sepsis shock status: without septic shock Qualified Code(s): A41.9 - Sepsis, unspecified organism; R65.20 - Severe sepsis without septic shock; N17.9 - Acute kidney failure, unspecified Code(s): A41.9 - Sepsis, unspecified organism Status: Acute Assessment and Plan: wbc is better today, supportive care, abx (6) Weakness: Code(s): R53.1 - Weakness Status: Acute (7) Bilateral renal masses: Code(s): N28.89 - Other specified disorders of kidney and ureter Status: Acute (8) Failure to thrive: Qualifiers: Failure to thrive age range: in adult Qualified Code(s): R62.7 - Adult failure to thrive Status: Acute GI Consult Note Consult date/time: 01/18/20 10:24 Reason for consult: pancolitis, abnormal spleen HPI: Lam James is a 64 year old male with history of HTN, HLD, Asperger syndrome, interstitial cystitis and osteoarthritis who came via EMS on 01/16/2020 with diarrhea. He has failure to thrive since he was admitted on October after he fell and also treated for pneumonia, then developed diarrhea and diagnosed with C diff, treated for 10 days but sister says that diarrhea never went away, he was taken to SNF for rehabilitation but readmitted just few days ago because diarrhea for 3 days. He is back again because ongoing diarrhea. Stool sample is positive for C diff. He also had low grade fever, leukocytosis. CT scan a/p showed pancolitis, most likely infectious, innumerable poorly circumscribed hypovascular masses of the spleen which is enlarged. Consider microabscesses, metastatic disease and lymphoma. Supraumbilical ventral abdominal wall hernia and left inguinal hernias both containing nonobstructed colon and Indeterminate bilateral renal masses. Started on dificid with flagyl, also on cefepime because findings of spleen. WBC better today. Sister is at bedside and he will be transferred to [facility] (waiting a bed) because abnormal findings in spleen. Also history of autoimmune conditions in family (sister with PBC, niece with ITP, also h/o gastroesophageal cancer). Patient last colonoscopy about 10 years ago, no EGD. Also weight loss about 20 lb Review of Systems Constitutional: Constitutional: Reports fatigue, Reports frequent falls, Reports lethargy, Reports malaise and Reports weight loss Eyes: Eyes: Denies blurry vision ENT: Reports Normal hearing present, Denies headache(s) and Denies neck pain Cardiovascular:
--- NOTE | 2020-01-18 11:18 | PM.IMPN ---
Progress Note: A&P Assessment and Plan (1) Pancolitis: Code(s): K51.00 - Ulcerative (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 complications <Shelley Ogden PA-C - Last Filed: 01/18/20 12:54> Status: Acute <Shelley Ogden PA-C - Last Filed: 01/18/20 12:54> Assessment and Plan: Patient was treated for C. difficile infection at [facility] in early December with 10 days of oral Metronidazole. CT abdomen and pelvis shows diffuse abnormal thickening of the colon, most severe in descending, sigmoid, and rectum with pancolitis most likely infectious cause. C. difficile toxin assay is positive. Giardia and Cryptosporidium negative. Campylobacter, E. coli, and Salmonella/Shigella pending. Treated with two doses of PO Vancomycin 125 mg on 01/17. Switched to IV Flagyl and PO Fidaxomicin on 01/17. Dr. Wiseman is following patient and recommendations are appreciated. Patient does have significant maceration of skin on buttocks secondary to diarrhea. Wound care has seen the patient. - Patient accepted for transfer to [facility] on 01/17/20 per family request. No beds currently available but will be transferred upon availability. - Continue IV Flagyl and PO Fidaxomicin. Start date 01/17. - Continue Florastor probiotic 250 TID - Continue Questran 4 g PO QID prn diarrhea - Continue Banatrol per dietary recommendations - Continue wound care for maceration per wound team <Shelley Ogden PA-C - Last Filed: 01/18/20 12:54> (2) Sepsis: Qualifiers: Acute renal failure type: unspecified Sepsis acute organ dysfunction status: with acute organ dysfunction Sepsis type: sepsis due to unspecified organism Severe sepsis acute organ dysfunction type: acute renal failure Severe sepsis shock status: without septic shock Qualified Code(s): A41.9 - Sepsis, unspecified organism; R65.20 - Severe sepsis without septic shock; N17.9 - Acute kidney failure, unspecified <Shelley Ogden PA-C - Last Filed: 01/18/20 12:54> Code(s): A41.9 - Sepsis, unspecified organism <Shelley Ogden PA-C - Last Filed: 01/18/20 12:54> Status: Acute <Shelley LIYAH McgowanC - Last Filed: 01/18/20 12:54> Assessment and Plan: Sepsis likely secondary to pancolitis has resolved. Patient no longer meets SIRS criteria and vitals are stable. WBC trended down from 31.9 to 23.1. Lactate is WNL at 0.6. No signs of septic shock and blood pressure stable at 110/61. Preliminary blood cultures show no growth to date. - Continue IV Normal Saline at 75 ml/hr. - Continue to monitor lactate level. - Continue to monitor vitals watching closely for hypotension <LIYAH PadillaC - Last Filed: 01/18/20 12:54> (3) Pneumonia: Qualifiers: Laterality: right Lung location: lower lobe of lung Pneumonia type: due to unspecified organism Qualified Code(s): J18.9 - Pneumonia, unspecified organism <LIYAH PadillaC - Last Filed: 01/18/20 12:54> Code(s): J18.9 - Pneumonia, unspecified organism <LIYAH PadillaC - Last Filed: 01/18/20 12:54> Status: Acute <LIYAH PadillaC - Last Filed: 01/18/20 12:54> Assessment and Plan: Patient endorses wet cough without sputum for several weeks. He also endorses fever, fatigue, and decreased appetite. Today he has no fever, he is not tachypnic and lungs are clear to auscultation bilaterally. His O2 sat is 98% on room air. Chest X-Ray reveals no acute cardiopulmonary disease but CT abdomen/pelvis reveals right lower lobe airspace disease posteriorly with areas of tree-in-bud configuration, suspicious for pneumonia. Calcified granuloma right middle lobe. Right lower lobe location with history of dysphagia makes aspiration pneumonia likely. - Continue IV Cefepime. Start date 01/17. - Continue thickened liquids diet - Continue to monitor respiratory status <Shelley Ogden PA-C - Last Filed: 01/18/20 12:5
[2020-01-18] MEDS: POTASSIUM CHLORIDE 20 MEQ TABLET.ER 40 MEQ PO ×2 (13:31→18:06)
[2020-01-18 14:00] VITALS: BP 120/51; PULSE 88; RESP 16; TEMP 37.6; O2SAT 95
[2020-01-18 15:58] LABS: Magnesium 1.8 mg/dL (1.6-2.3); Potassium 3.1 mmol/L (3.4-5.0)
[2020-01-18] MEDS: SODIUM CHLORIDE 0.9% IV 1,000 ML 75 ML IV CONT (18:33)
[2020-01-18 21:21] VITALS: BP 118/69; PULSE 68; RESP 16; TEMP 36.8; O2SAT 99
[2020-01-19] MEDS: metroNIDAZOLE 500 MG/ISO 100ML 500 MG/100 ML BAG 100 MG IVPB ×4 (00:27→17:39)
[2020-01-19 06:00] VITALS: BP 119/60; PULSE 83; RESP 16; TEMP 36.8; O2SAT 99
[2020-01-19 06:19] LABS: Hematocrit 32.1 % (42.0-52.0); Hemoglobin 10.3 g/dL (14.0-18.0); Mean Corpuscular HGB Conc 32.1 g/dl (32-36); Mean Corpuscular Hemoglobin 27.3 pg (26-34); Mean Corpuscular Volume 85.1 fl (80-100); Mean Platelet Volume 8.8 fl (7.4-10.4); Platelet Count Result 211 k/mm3 (150-375); Red Blood Count 3.77 M/mm3 (4.6-6.20); Red Cell Distribution Width 16.8 % (11.5-14.5); White Blood Count 17.8 K/mm3 (4.5-10.0)
[2020-01-19 06:49] LABS: Alanine Aminotransferase 24 U/L (4-50); Albumin Level 2.4 g/dL (3.5-5.1); Alkaline Phosphatase 143 U/L (38-126); Aspartate Amino Transferase 43 U/L (17-59); Bilirubin,Total 0.2 mg/dL (0.2-1.3); Blood Urea Nitrogen 14 mg/dL (9-20); Calcium 7.7 mg/dL (8.4-10.2); Carbon Dioxide 21 mmol/L (22-30); Chloride 108 mmol/L (98-107); Estimated CRCL calculation 71 ml/min; Estimated Glomerular Filt Rate > 60; Glucose 100 mg/dL (75-110); Lactate Dehydrogenase 259 U/L (313-618); Magnesium 1.8 mg/dL (1.6-2.3); Sodium 140 mmol/L (137-145)
[2020-01-19 07:00] LABS: CRP 11.9 mg/dL (<1.0)
[2020-01-19 07:09] LABS: HIV 1/2 Ab P24 Ag Result Negative (Negative)
[2020-01-19] MEDS: SACCHAROMYCES BOULARDII 250 MG CAPSULE PO ×3 (09:32→17:37)
[2020-01-19] MEDS: MIRABEGRON 25 MG ER TABLET 50 MG PO (09:32)
[2020-01-19] MEDS: SIMVASTATIN 20 MG TABLET PO (09:32)
[2020-01-19] MEDS: FIDAXOMICIN 200 MG TABLET PO ×2 (09:32→21:08)
[2020-01-19] MEDS: FINASTERIDE 5 MG TABLET PO (09:32)
[2020-01-19] MEDS: POTASSIUM CHLORIDE 20 MEQ TABLET 40 MEQ PO ×3 (10:07→17:37)
[2020-01-19] MEDS: SODIUM CHLORIDE 0.9% IV 1,000 ML 75 ML IV CONT (11:35)
--- NOTE | 2020-01-19 11:47 | PM.IMPN ---
Progress Note: A&P Assessment and Plan (1) Pancolitis: Code(s): K51.00 - Ulcerative (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 complications <Shelley Ogden PA-C - Last Filed: 01/19/20 12:14> Status: Acute <Shelley Ogden PA-C - Last Filed: 01/19/20 12:14> Assessment and Plan: Patient was treated for C. difficile infection at [facility] in early December with 10 days of oral Metronidazole. CT abdomen and pelvis shows diffuse abnormal thickening of the colon, most severe in descending, sigmoid, and rectum with pancolitis most likely infectious cause. C. difficile toxin assay is positive. Giardia and Cryptosporidium negative. Campylobacter, E. coli, and Salmonella/Shigella pending. Treated with two doses of PO Vancomycin 125 mg on 01/17. Switched to IV Flagyl and PO Fidaxomicin on 01/17. Dr. Wiseman is following patient and recommendations are appreciated. - Patient accepted for transfer to [facility] on 01/17/20 per family request. No beds currently available but will be transferred upon availability. - Continue IV Flagyl and PO Fidaxomicin. Start date 01/17. - Continue Florastor probiotic 250 TID - Continue Questran 4 g PO QID prn diarrhea <Shelley Ogden PA-C - Last Filed: 01/19/20 12:14> (2) Sepsis: Qualifiers: Acute renal failure type: unspecified Sepsis acute organ dysfunction status: with acute organ dysfunction Sepsis type: sepsis due to unspecified organism Severe sepsis acute organ dysfunction type: acute renal failure Severe sepsis shock status: without septic shock Qualified Code(s): A41.9 - Sepsis, unspecified organism; R65.20 - Severe sepsis without septic shock; N17.9 - Acute kidney failure, unspecified <Shelley Ogden PA-C - Last Filed: 01/19/20 12:14> Code(s): A41.9 - Sepsis, unspecified organism <Shelley Ogden PA-C - Last Filed: 01/19/20 12:14> Status: Resolved <Shelley Ogden PA-C - Last Filed: 01/19/20 12:14> Assessment and Plan: Sepsis likely secondary to pancolitis has resolved. Patient no longer meets SIRS criteria and vitals are stable. WBC trended down from 31.9 to 17.8 today. Lactate is WNL at 0.6. No signs of septic shock and blood pressure stable at 119/60. Preliminary blood cultures show no growth to date. - Continue IV Normal Saline at 75 ml/hr. - Continue to monitor lactate level. - Continue to monitor vitals watching closely for hypotension <VIN Padilla-C - Last Filed: 01/19/20 12:14> (3) Pneumonia: Qualifiers: Laterality: right Lung location: lower lobe of lung Pneumonia type: due to unspecified organism Qualified Code(s): J18.9 - Pneumonia, unspecified organism <Shelley Ogden PA-C - Last Filed: 01/19/20 12:14> Code(s): J18.9 - Pneumonia, unspecified organism <Shelley Ogden PA-C - Last Filed: 01/19/20 12:14> Status: Acute <Shelley Ogden PA-C - Last Filed: 01/19/20 12:14> Assessment and Plan: Patient endorses wet cough without sputum for several weeks. Today he has no fever, he is not tachypnic and lungs are clear to auscultation bilaterally. His O2 sat is 99% on room air. Chest X-Ray reveals no acute cardiopulmonary disease but CT abdomen/pelvis reveals right lower lobe airspace disease posteriorly with areas of tree-in-bud configuration, suspicious for pneumonia. Calcified granuloma right middle lobe. Right lower lobe location with history of dysphagia makes aspiration pneumonia likely. - Continue IV Cefepime. Start date 01/17. - Upgrade to level 6 diet. - Continue to monitor respiratory status <Shelley Ogden PA-C - Last Filed: 01/19/20 12:14> (4) Urinary tract infection: Code(s): N39.0 - Urinary tract infection, site not specified <VIN Padilla-C - Last Filed: 01/19/20 12:14> Status: Acute <Shelley Ogden PA-C - Last Filed: 01/19/20 12:14> Assessment and Plan:
--- NOTE | 2020-01-19 12:09 | WPDGIPROGNO ---
Progress Note: A&P Assessment and Plan (1) C. difficile colitis: Code(s): A04.72 - Enterocolitis due to Clostridium difficile, not specified as recurrent Status: Acute Assessment and Plan: continue treatment, also probiotics renal failure resolved, still with diarrhea. (2) Pneumonia: Qualifiers: Laterality: right Lung location: lower lobe of lung Pneumonia type: due to unspecified organism Qualified Code(s): J18.9 - Pneumonia, unspecified organism Code(s): J18.9 - Pneumonia, unspecified organism Status: Acute Assessment and Plan: found on CT scan, on iv cefepime, wbc is trending down he looks better today (3) Sepsis: Qualifiers: Acute renal failure type: unspecified Sepsis acute organ dysfunction status: with acute organ dysfunction Sepsis type: sepsis due to unspecified organism Severe sepsis acute organ dysfunction type: acute renal failure Severe sepsis shock status: without septic shock Qualified Code(s): A41.9 - Sepsis, unspecified organism; R65.20 - Severe sepsis without septic shock; N17.9 - Acute kidney failure, unspecified Code(s): A41.9 - Sepsis, unspecified organism Status: Resolved Assessment and Plan: resolved, cultures pending (4) Pancolitis: Code(s): K51.00 - Ulcerative (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 complications Status: Acute (5) Splenic mass: Code(s): R16.1 - Splenomegaly, not elsewhere classified Status: Acute Assessment and Plan: ldh was normal. awaiting bed on [facility] (6) Leukocytosis: Qualifiers: Leukocytosis type: unspecified Qualified Code(s): D72.829 - Elevated white blood cell count, unspecified Code(s): D72.829 - Elevated white blood cell count, unspecified Status: Acute Subjective Date/time seen: 01/19/20 12:09 Interval history: still with diarrhea, no abdominal pain or vomiting, still poor appetite. Review of Systems Review of Systems: All systems reviewed & are unremarkable except as noted in HPI and below Exam Const: General: no acute distress Other: looks chronically ill, thin HENMT: General nose exam: Normal nares present Eyes: General: appearance normal, both eyes and all related structures Neck: Neck: no JVD Resp: Auscultation: clear to auscultation bilaterally Cardio: Rate: regular rate Rhythm: regular rhythm GI: GI Palp: Yes Soft to palpation and No Tenderness to palpation present (GI) Percussion: No Fluid wave present Auscultation: normal bowel sounds Skin: General skin exam: normal color Neuro: Speech: normal speech Extrem: General: normal to inspection Psych: Mental Status: mental status grossly normal Objective Data Vital Signs Vital Signs: Vital Signs - 24 hr 01/18/20 14:00 01/18/20 21:21 01/19/20 06:00 Temperature 99.6 F 98.2 F 98.2 F Pulse Rate 88 68 83 Respiratory Rate 16 16 16 Blood Pressure 120/51 L 118/69 119/60 Pulse Oximetry 95 99 99 Intake/Output Intake/Output: Intake & Output 01/16/20 01/17/20 01/18/20 01/19/20 23:59 23:59 23:59 23:59 Intake Total 2050 3180 2350 1360 Output Total 675 750 950 Balance 2050 2505 1600 410 Meds/Results Medications: Active Medications Generic Name Dose Route Start Last Admin Trade Name Freq PRN Reason Stop Dose Admin Acetaminophen 650 mg 01/17/20 14:51 Tylenol Tablet PO Q4H PRN Pain Rated 1-3 Alfuzosin HCl 10 mg 01/17/20 09:00 01/19/20 09:32 Uroxatral PO 10 mg DAILY JUSTUS Administration Cholestyramine Resin 4 gm 01/17/20 16:31 Questran Powder Packs PO QID RXN PRN Diarrhea Fidaxomicin 200 mg 01/17/20 21:00 01/19/20 09:32 Dificid PO 200 mg Q12HR JUSTUS Administration Finasteride 5 mg 01/17/20 09:00 01/19/20 09:32 Proscar PO 5 mg DAILY JUSTUS Administration Sodium Chloride 1,000 mls @ 75 mls/hr 01/16/20 22:30 01/19/20 11:35 Normal Saline Iv IV CONT 75 mls/hr .[id number] SC
[2020-01-19 14:00] VITALS: BP 114/63; PULSE 90; RESP 18; TEMP 36.9; O2SAT 96
[2020-01-19 18:30] LABS: Blood Urea Nitrogen 13 mg/dL (9-20); Calcium 7.7 mg/dL (8.4-10.2); Carbon Dioxide 21 mmol/L (22-30); Chloride 109 mmol/L (98-107); Estimated CRCL calculation 65 ml/min; Estimated Glomerular Filt Rate > 60; Glucose 113 mg/dL (75-110); Potassium 3.6 mmol/L (3.4-5.0); Sodium 141 mmol/L (137-145)
[2020-01-19 20:47] VITALS: PULSE 90; RESP 18; O2SAT 96
[2020-01-19 22:00] VITALS: BP 133/68; PULSE 75; RESP 18; TEMP 36.7; O2SAT 97
[2020-01-20] MEDS: metroNIDAZOLE 500 MG/ISO 100ML 500 MG/100 ML BAG 100 MG IVPB ×4 (00:30→17:32)
[2020-01-20] MEDS: SODIUM CHLORIDE 0.9% IV 1,000 ML 75 ML IV CONT (04:19)
[2020-01-20 06:00] VITALS: BP 142/73; PULSE 75; RESP 18; TEMP 36.8; O2SAT 98
[2020-01-20 06:24] LABS: Hematocrit 33.4 % (42.0-52.0); Hemoglobin 10.5 g/dL (14.0-18.0); Mean Corpuscular HGB Conc 31.4 g/dl (32-36); Mean Corpuscular Hemoglobin 26.8 pg (26-34); Mean Corpuscular Volume 85.2 fl (80-100); Mean Platelet Volume 8.9 fl (7.4-10.4); Platelet Count Result 228 k/mm3 (150-375); Red Blood Count 3.92 M/mm3 (4.6-6.20); Red Cell Distribution Width 17.1 % (11.5-14.5); White Blood Count 16.3 K/mm3 (4.5-10.0)
[2020-01-20 06:37] LABS: Alanine Aminotransferase 19 U/L (4-50); Albumin Level 2.4 g/dL (3.5-5.1); Alkaline Phosphatase 133 U/L (38-126); Aspartate Amino Transferase 21 U/L (17-59); Bilirubin,Total 0.3 mg/dL (0.2-1.3); Blood Urea Nitrogen 12 mg/dL (9-20); Calcium 7.8 mg/dL (8.4-10.2); Carbon Dioxide 19 mmol/L (22-30); Chloride 113 mmol/L (98-107); Estimated CRCL calculation 71 ml/min; Estimated Glomerular Filt Rate > 60; Glucose 101 mg/dL (75-110); Potassium 3.4 mmol/L (3.4-5.0); Sodium 140 mmol/L (137-145)
--- NOTE | 2020-01-20 06:51 | PM.IMPN ---
Progress Note: A&P Assessment and Plan (1) Pancolitis: Code(s): K51.00 - Ulcerative (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 complications <Shelley Ogden PA-C - Last Filed: 01/20/20 15:41> Status: Acute <Shelley Ogden PA-C - Last Filed: 01/20/20 15:41> Assessment and Plan: Patient was treated for C. difficile infection at [facility] in early December with 10 days of oral Metronidazole. CT abdomen and pelvis shows diffuse abnormal thickening of the colon, most severe in descending, sigmoid, and rectum with pancolitis most likely infectious cause. C. difficile toxin assay is positive. Giardia and Cryptosporidium negative. Campylobacter, E. coli, and Salmonella/Shigella pending. Treated with two doses of PO Vancomycin 125 mg on 01/17. Switched to IV Flagyl and PO Fidaxomicin on 01/17. Dr. Wiseman is following patient and recommendations are appreciated. - Patient accepted for transfer to [facility] on 01/17/20 per family request. No beds currently available but will be transferred upon availability. - Continue IV Flagyl and PO Fidaxomicin. Start date 01/17. - Continue Florastor probiotic 250 TID - Continue Questran 4 g PO QID prn diarrhea <Shelley Ogden PA-C - Last Filed: 01/20/20 15:41> (2) Sepsis: Qualifiers: Acute renal failure type: unspecified Sepsis acute organ dysfunction status: with acute organ dysfunction Sepsis type: sepsis due to unspecified organism Severe sepsis acute organ dysfunction type: acute renal failure Severe sepsis shock status: without septic shock Qualified Code(s): A41.9 - Sepsis, unspecified organism; R65.20 - Severe sepsis without septic shock; N17.9 - Acute kidney failure, unspecified <Shelley Ogden PA-C - Last Filed: 01/20/20 15:41> Code(s): A41.9 - Sepsis, unspecified organism <LIYAH PadillaC - Last Filed: 01/20/20 15:41> Status: Resolved <Shelley Ogden PA-C - Last Filed: 01/20/20 15:41> Assessment and Plan: Sepsis likely secondary to pancolitis has resolved. Patient no longer meets SIRS criteria and vitals are stable. WBC trended down from 31.9 to 17.8 today. Lactate is WNL at 0.6. No signs of septic shock and blood pressure stable at 119/60. Preliminary blood cultures show no growth to date. - Continue IV Normal Saline at 75 ml/hr. - Continue to monitor lactate level. - Continue to monitor vitals watching closely for hypotension <Shelley Ogden PA-C - Last Filed: 01/20/20 15:41> (3) Pneumonia: Qualifiers: Laterality: right Lung location: lower lobe of lung Pneumonia type: due to unspecified organism Qualified Code(s): J18.9 - Pneumonia, unspecified organism <Shelley Ogden PA-C - Last Filed: 01/20/20 15:41> Code(s): J18.9 - Pneumonia, unspecified organism <Shelley Ogden PA-C - Last Filed: 01/20/20 15:41> Status: Acute <Shelley Ogden PA-C - Last Filed: 01/20/20 15:41> Assessment and Plan: Patient endorses wet cough without sputum for several weeks. Today he has no fever, he is not tachypnic and lungs are clear to auscultation bilaterally. His O2 sat is 99% on room air. Chest X-Ray reveals no acute cardiopulmonary disease but CT abdomen/pelvis reveals right lower lobe airspace disease posteriorly with areas of tree-in-bud configuration, suspicious for pneumonia. Calcified granuloma right middle lobe. Right lower lobe location with history of dysphagia makes aspiration pneumonia likely. - Continue IV Cefepime. Start date 01/17. - Upgrade to level 6 diet. - Continue to monitor respiratory status <Shelley Ogden PA-C - Last Filed: 01/20/20 15:41> (4) Urinary tract infection: Code(s): N39.0 - Urinary tract infection, site not specified <Shelley Ogden PA-C - Last Filed: 01/20/20 15:41> Status: Acute <Shelley Ogden PA-C - Last Filed: 01/20/20 15:41> Assessment and Plan:
[2020-01-20] MEDS: SIMVASTATIN 20 MG TABLET PO (09:24)
[2020-01-20] MEDS: MIRABEGRON 25 MG ER TABLET 50 MG PO (09:24)
[2020-01-20] MEDS: FIDAXOMICIN 200 MG TABLET PO (09:24)
[2020-01-20] MEDS: FINASTERIDE 5 MG TABLET PO (09:24)
[2020-01-20] MEDS: SACCHAROMYCES BOULARDII 250 MG CAPSULE PO ×3 (09:24→17:33)
--- NOTE | 2020-01-20 11:17 | WPDGIPROGNO ---
Progress Note: A&P Assessment and Plan (1) C. difficile colitis: Code(s): A04.72 - Enterocolitis due to Clostridium difficile, not specified as recurrent Status: Acute Assessment and Plan: continue treatment, also probiotics still with diarrhea. (2) Pneumonia: Qualifiers: Laterality: right Lung location: lower lobe of lung Pneumonia type: due to unspecified organism Qualified Code(s): J18.9 - Pneumonia, unspecified organism Code(s): J18.9 - Pneumonia, unspecified organism Status: Acute Assessment and Plan: found on CT scan, on iv cefepime, wbc is trending down hiv negative (3) Sepsis: Qualifiers: Acute renal failure type: unspecified Sepsis acute organ dysfunction status: with acute organ dysfunction Sepsis type: sepsis due to unspecified organism Severe sepsis acute organ dysfunction type: acute renal failure Severe sepsis shock status: without septic shock Qualified Code(s): A41.9 - Sepsis, unspecified organism; R65.20 - Severe sepsis without septic shock; N17.9 - Acute kidney failure, unspecified Code(s): A41.9 - Sepsis, unspecified organism Status: Resolved Assessment and Plan: resolved, cultures NGTD (4) Pancolitis: Code(s): K51.00 - Ulcerative (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 complications Status: Acute (5) Splenic mass: Code(s): R16.1 - Splenomegaly, not elsewhere classified Status: Acute Assessment and Plan: ldh was normal. awaiting bed on [facility] (6) Leukocytosis: Qualifiers: Leukocytosis type: unspecified Qualified Code(s): D72.829 - Elevated white blood cell count, unspecified Code(s): D72.829 - Elevated white blood cell count, unspecified Status: Acute Subjective Date/time seen: 01/20/20 11:17 Interval history: still with diarrhea, no abdominal pain and he is trying to eat more. He is comfortable in bed. Review of Systems Review of Systems: All systems reviewed & are unremarkable except as noted in HPI and below Exam Const: General: no acute distress Other: looks chronically ill, thin HENMT: General nose exam: Normal nares present Eyes: General: appearance normal, both eyes and all related structures Neck: Neck: no JVD Resp: Auscultation: clear to auscultation bilaterally Cardio: Rate: regular rate Rhythm: regular rhythm GI: GI Palp: Yes Soft to palpation and No Tenderness to palpation present (GI) Percussion: No Fluid wave present Auscultation: normal bowel sounds Skin: General skin exam: normal color Neuro: Speech: normal speech Extrem: General: normal to inspection Psych: Mental Status: mental status grossly normal Objective Data Vital Signs Vital Signs: Vital Signs - 24 hr 01/19/20 14:00 01/19/20 20:47 01/19/20 22:00 Temperature 98.4 F 98.1 F Pulse Rate 90 90 75 Respiratory Rate 18 18 18 Blood Pressure 114/63 133/68 Pulse Oximetry 96 96 97 01/20/20 06:00 Temperature 98.2 F Pulse Rate 75 Respiratory Rate 18 Blood Pressure 142/73 H Pulse Oximetry 98 Intake/Output Intake/Output: Intake & Output 01/17/20 01/18/20 01/19/20 01/20/20 23:59 23:59 23:59 23:59 Intake Total 3180 2350 2630 1490 Output Total 869 244 9830 700 Balance 2505 1600 1030 790 Meds/Results Medications: Active Medications Generic Name Dose Route Start Last Admin Trade Name Freq PRN Reason Stop Dose Admin Acetaminophen 650 mg 01/17/20 14:51 Tylenol Tablet PO Q4H PRN Pain Rated 1-3 Alfuzosin HCl 10 mg 01/17/20 09:00 01/20/20 09:24 Uroxatral PO 10 mg DAILY JUSTUS Administration Cholestyramine Resin 4 gm 01/17/20 16:31 Questran Powder Packs PO QID RXN PRN Diarrhea Fidaxomicin 200 mg 01/17/20 21:00 01/20/20 09:24 Dificid PO 200 mg Q12HR JUSTUS Administration Finasteride 5 mg 01/17/20 09:00 01/20/20 09:24 Proscar PO 5 mg DAILY JUSTUS Administration Sodium Chloride 1,000 mls @ 7
--- NOTE | 2020-01-20 13:51 | PCNFU ---
Nutrition Follow-Up Complete: Inadequate Oral Intake as related to Diarrhea/pancolitis as evidenced by weight loss of 23 ibs in the past 5 months and Cdiff positive. Adequate Intake of at least 75% of meals/Supplements Goal: progressing towards goal. Pt current nutrition is Soft/Bite Sized, Level 6 and Moderately Thick, Level 3. Nutrition recommendation:Agree Last recorded weight is 85.1 kg. Bowel Motility:+BM 2/24 -3 reported Labs Reviewed:Alb 2.4,Hct 33.4,Hgb 10.5 Meds Noted: Florastor, Normal Saline at 75 ml/hr Additional Notes: Patient diet has been downgraded due to hx of Dysphagia. Oral intake: 50-75% of meals. Patient remains on Ensure Enlive providing an additional 350 kcals and 20 gms protein and Banatrol Plus 2/2 to Cdiff. Transfer order-Bed pending. PO intake continues to be encouraged. Monitoring: RD will monitor every 3 days.
[2020-01-20 14:00] VITALS: BP 110/62; PULSE 85; RESP 18; TEMP 36.8; O2SAT 96
[2020-01-20 21:10] LABS: Immunoglobulin A 305 mg/dL (70-320); Immunoglobulin G 602 mg/dL (600-1540); Immunoglobulin M 39 mg/dL (50-300)
--- NOTE | 2020-01-21 18:16 | PM.TDS ---
Transfer Discharge Sum: Prov Provider Date of admission: 01/16/20 22:28 Primary care physician: Rachid Rios DO Admitting clinician: Lenore Ren DO Consults: 01/16/20 Care Coordination Consult Routine Comment: Reason for Consult:: Mcfp Placement 01/16/20 22:31 Consult to Physician Routine Comment: Consulting Provider: Yadiel Whitten Reason for consultation: Pancolitis Has provider been notified: Yes 01/17/20 Wound/ET Consult Routine Reason for Consult:: Bilateral buttock maceration Attending physician on discharge: Vinod Lange Discharging clinician: Shelley Ogden Anticipated date of transfer: 01/20/20 Receiving physician/facility: Dr. Staton of [facility] Hospitalist [facility]. Accepted for transfer on 01/17/20 DS: Diagnosis Admitting Diagnosis Admitting Diagnosis: Infectious pancolitis Discharge Diagnosis (1) Pancolitis: Code(s): K51.00 - Ulcerative (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 complications Status: Acute Assessment and Plan: Patient was previously treated for C. difficile infection in early December at [facility] with 10 days of oral metronidazole. A CT of the abdomen and pelvis on 01/16/2020 revealed diffuse abnormal thickening of the colon, most severe in descending, sigmoid, and rectum with pancolitis most likely infectious cause. A C. difficile toxin assay from 01/16/20 was positive. Stool was negative for Giardia, Cryptosporidium, Campylobacter, E. coli, and Salmonella/Shigella. He was initially treated with two doses of PO Vancomycin on 01/17 and then switched to IV Flagyl and PO Fidaxomicin on 01/17. At time of transfer on 01/20, he had completed 4 days of antibiotic therapy. He was also given Florastor probiotic. He had consistent diarrhea throughout his stay but appeared to be lessening with treatment. On day of transfer, he had endorsed two episodes of diarrhea. He was given Questran prn for diarrhea. Dr. Moser, a gambling counsellor, was consulted and followed the patient closely. His white count had been trending down during his stay. (2) Sepsis: Qualifiers: Acute renal failure type: unspecified Sepsis acute organ dysfunction status: with acute organ dysfunction Sepsis type: sepsis due to unspecified organism Severe sepsis acute organ dysfunction type: acute renal failure Severe sepsis shock status: without septic shock Qualified Code(s): A41.9 - Sepsis, unspecified organism; R65.20 - Severe sepsis without septic shock; N17.9 - Acute kidney failure, unspecified Code(s): A41.9 - Sepsis, unspecified organism Status: Resolved Assessment and Plan: At admission, he was septic evident by tachycardia and leukocytosis, likely secondary to pancolitis. After hospital day 1, his vitals had stabilized and he was no longer found to be septic. His lactic acid remained within normal limits and there was no evidence of septic shock. Blood cultures taken on 01/16/20 reveal no growth to date. (3) Pneumonia: Qualifiers: Pneumonia type: due to unspecified organism Laterality: right Lung location: lower lobe of lung Qualified Code(s): J18.9 - Pneumonia, unspecified organism Code(s): J18.9 - Pneumonia, unspecified organism Status: Acute Assessment and Plan: A chest x-ray from 01/16/20 revealed no acute cardiopulmonary disease, however a CT of abdomen/pelvis did reveal right lower lobe airspace disease posteriorly that was suspicious for pneumonia. The patients previous history of pneumonia in October 2019 and his recent history of dysphagia, coupled with the right lower lobe location made aspiration pneumonia a likely etiology. A swallow study from October yielded recommendations of thickened liquid diet as he was at risk for aspiration. A swallow study was not repeated during this visit. Mr. James endorsed a wet cough without sputum for several weeks. He was initiated on IV Cefepime on 01/17
== END 2020-01-20 19:45 | disposition short-term general hospital (02) | DRG 871 ==
LOC: ANHED 22:42 → ANH3MEDSUR 22:49
PROVIDERS: Physician Assistant; Admitting Provider Internal Medicine; Emergency Provider Emergency Medicine; PCP Internal Medicine; Visit Provider Internal Medicine
DX: A41.89 Other specified sepsis (principal); J18.9 Pneumonia, unspecified organism; J69.0 Pneumonitis due to inhalation of food and vomit; K51.00 Ulcerative (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 complications; A04.72 Enterocolitis due to Clostridium difficile, not specified as recurrent; T83.511A Infection and inflammatory reaction due to indwelling urethral catheter, initial encounter; N39.0 Urinary tract infection, site not specified; N17.9 Acute kidney failure, unspecified; F84.5 Asperger's syndrome; R65.20 Severe sepsis without septic shock; E87.6 Hypokalemia; R16.1 Splenomegaly, not elsewhere classified; N28.89 Other specified disorders of kidney and ureter; E86.0 Dehydration; M19.90 Unspecified osteoarthritis, unspecified site; E55.9 Vitamin D deficiency, unspecified; E78.5 Hyperlipidemia, unspecified; L98.8 Other specified disorders of the skin and subcutaneous tissue; I10 Essential (primary) hypertension; D64.9 Anemia, unspecified; Z96.641 Presence of right artificial hip joint; L89.321 Pressure ulcer of left buttock, stage 1; L89.311 Pressure ulcer of right buttock, stage 1
CPT/HCPCS: 36415; 71046; 74177; 76770; 80048; 80053; 81001; 82550; 82784; 83605; 83615; 83735; 84132; 85025; 85027; 85610; 85730; 86140; 86703; 87015; 87040; 87045; 87046; 87077; 87081; 87086; 87088; 87186; 87269; 87272; 87324; 87427; 87804; 89055; 93005; 96361; 96365; 97530; 97535; 99285; A9270; G0378; G0432; J0692; J2543; J7030; Q9967

== ENCOUNTER 2020-05-25 10:36 | Inpatient (IN) | payer MEDICARE, MEDICAID, SELFPAY ==
[2020-05-25] VITALS (14 sets, daily range): BP systolic 86–111; BP diastolic 29–77; PULSE 92–120; RESP 18–32; TEMP 36.6–36.8; O2SAT 91–100
--- NOTE | ~2020-05-25 | XR_ITS ---
XR chest 1V portable 05/25/2020 12:42 Indication: Weakness and shortness of breath. Cough. Procedure: AP portable chest Comparison: Comparison to multiple prior studies sequentially, with oldest reviewed study dated 11/2019. Findings: Heart size is normal. Bibasilar airspace disease, compatible with pneumonia. No edema, pleu ral effusion or pneumothorax. No acute osseous abnormality. Impression: 1: Bibasilar airspace disease, compatible with pneumonia. Reviewed, dictated and finalized at location A. Impression: 1: Bibasilar airspace disease, compatible with pneumonia.
--- NOTE | ~2020-05-25 | MR_ITS ---
EXAMINATION: MR brain/brain stem wo con EXAM DATE: 05/28/2020 13:42 INDICATION: Sepsis, pneumonia, UTI. Seizure-like activity. TECHNIQUE: Magnetic resonance imaging (MRI) of the brain/brain stem obtained without contrast. April al T1, axial diffusion, gradient echo (T2*), T1, FLAIR sequences obtained. Patient declined proceedi ng further, the T2-weighted axial sequence was not obtained. There are no prior studies for compariso n. FINDINGS: Minimal microangiopathy. There are no areas of restricted diffusion to suggest acute infarc tion. There is no acute hemorrhage seen on the T2*, a hemosiderin sensitive sequence. No intraparen chymal brain mass. The ventricles are normal in size. There are no extra-axial collections. Flow vo ids are seen in the cerebral arteries on the T2-weighted sequences consistent with their expected pat ency. The orbits are unremarkable. Soft tissue is unremarkable. Left mastoid effusion. IMPRESSION: Minimal microangiopathy. Reviewed, dictated and finalized at location B. IMPRESSION: Minimal microangiopathy.
--- NOTE | ~2020-05-25 | CT_ITS ---
EXAMINATION: CT brain wo con EXAM DATE: 05/25/2020 13:11 INDICATION: Seizure. Weakness. TECHNIQUE: Spiral CT of the head was performed without contrast. Axial, coronal and sagittal images were reviewed. The dose-length product (DLP) for this examination was 605.33 mGy-cm. The exposure w as tailored according to patient size, and iterative reconstruction (ASIR) was used as additional dos e reduction technique. There is no prior study for comparison. FINDINGS: There is no acute intraparenchymal hemorrhage. No evidence of intraparenchymal brain mass lesion. No evidence of acute infarction. There is no mass effect or midline shift. The ventricles are normal in size. There are no extra-axial collections. There are no acute calvarial fractures. T he orbits are unremarkable. Soft tissue is unremarkable. Extensive mucoperiosteal disease. IMPRESSION: 1. No acute intracranial findings. 2. Extensive mucoperiosteal disease. Reviewed, dictated and finalized at location B.
--- NOTE | 2020-05-25 10:45 | ECG_ITS ---
Measurements Intervals [place] Rate: 108 P: 58 NM: 157 QRS: -50 QRSD: 94 T: 75 QT: 365 QTc: 490 Interpretive Statements SINUS TACHYCARDIA ATRIAL PREMATURE COMPLEX LEFT ANTERIOR FASCICULAR BLOCK INFERIOR INFARCT, AGE INDETERMINATE ANTEROLATERAL INFARCT, AGE INDETERMINATE BASELINE ARTIFACT- II, III, V5-V6 ATYPICAL ECG Electronically Signed On 05-25-2020 11:19:35 CDT by Silverio García D.O.
[2020-05-25 11:20] LABS: Add Urine Microscopic? YES; Appearance Urine Turbid (Clear); Bilirubin Urine Negative (Negative); Blood Urine 2+ (Negative); Color Urine Yellow (Yellow); Glucose Urine UA Negative (Negative); Ketones Urine Trace mg/dL (Negative); Leukocyte Esterase Ur 2+ LEU/UL (Negative); Mucus Urine Heavy /lpf; Nitrate Urine Negative (Negative); Protein Urine 2+ mg/dL (Negative); RBC Urine >75 /hpf (0-2); Specific Grav Ur 1.016 (1.001-1.035); Urobilinogen Urine Negative mg/dL (<2.0); WBC Urine >75 /hpf
[2020-05-25] MEDS: SODIUM CHLORIDE 0.9% IV 1,000 ML 999 ML IV CONT (12:09)
[2020-05-25 12:23] LABS: Alveolar/Arterial O2 Gradient 42.3 mmHg; Base Excess ABG -0.5 mEq/l (+/-2.0); Carboxyhemoglobin 0.4 % THb (0-2.0); Fractional Inspired Oxygen 21 %; HCO3 ABG 22.1 mEq/l (22.0-26.0); Methemoglobin ABG 0.4 %THb (0-1.5); Oxygen Content ABG 17.9 %vol (16.0-22.0); Oxygen Saturation ABG 95.5 % (95.0-100.0); Oxyhemoglobin 94.2 % THb (90.0-100.0); PCO2 ABG 30.3 mmHg (35.0-45.0); PO2 ABG 71.1 mmHg (80.0-100.0); PO2 FiO2 Ratio Arterial Blood 3.39 %; Total Hemoglobin 13.5 g/dL (12.0-18.0)
[2020-05-25 12:24] LABS: Device ROOM AIR; Modified Allen's Test Pass; Site Drawn RIGHT RADIAL
[2020-05-25 12:24] LABS: Basophils Absolute Auto 0.1 K/mm3 (0.0-0.1); Basophils Percent Auto 0.4 % (0.2-1.2); Hematocrit 43.4 % (42.0-52.0); Hemoglobin 14.3 g/dL (14.0-18.0); Immature Granulocyte Absolute 0.36 K/mm3 (0.00-0.031); Immature Granulocyte Percent A 1.3 % (0-0.5); Lymphocytes Absolute Auto 0.85 K/mm3 (0.9-3.2); Lymphocytes Percent Auto 3.1 % (18.3-44.2); Mean Corpuscular HGB Conc 32.9 g/dl (32-36); Mean Corpuscular Hemoglobin 28.2 pg (26-34); Mean Corpuscular Volume 85.6 fl (80-100); Mean Platelet Volume 9.1 fl (7.4-10.4); Monocytes Absolute Auto 1.9 K/mm3 (0.1-0.6); Monocytes Percent Auto 7.1 % (2.6-8.5); Neutrophils Absolute Auto 23.8 K/mm3 (1.3-6.7); Neutrophils Percent Auto 88.1 % (45.5-73.1); Platelet Count Result 313 k/mm3 (150-375); Red Blood Count 5.07 M/mm3 (4.6-6.20); Red Cell Distribution Width 17.7 % (11.5-14.5); White Blood Count 27.1 K/mm3 (4.5-10.0)
[2020-05-25 12:36] LABS: Lactic Acid Reflex 1.4 mmol/L (0.7-2.1)
[2020-05-25 12:37] LABS: INR 1.4; Prothrombin Time 16.6 Seconds (11.1-14.7)
[2020-05-25 12:37] LABS: Alanine Aminotransferase 6 U/L (4-50); Albumin Level 2.9 g/dL (3.5-5.1); Alkaline Phosphatase 132 U/L (38-126); Aspartate Amino Transferase 12 U/L (17-59); Bilirubin,Total 0.6 mg/dL (0.2-1.3); Blood Urea Nitrogen 15 mg/dL (9-20); Calcium 8.1 mg/dL (8.4-10.2); Carbon Dioxide 24 mmol/L (22-30); Chloride 102 mmol/L (98-107); Estimated Glomerular Filt Rate > 60; Glucose 133 mg/dL (75-110); Magnesium 1.5 mg/dL (1.6-2.3); Potassium 2.9 mmol/L (3.4-5.0); Sodium 134 mmol/L (137-145)
[2020-05-25 12:38] LABS: Partial Thromboplastin Time 38.3 SECONDS (22.3-36.8)
--- NOTE | 2020-05-25 13:25 | ED.GENADULT ---
HPI - General Adult General Chief complaint: Syncope Stated complaint: SEIZURE Time Seen by Provider: 05/25/20 11:17 Source: family Mode of arrival: EMS History of Present Illness HPI narrative: This patient is a 64 year old male with history of Cdiff, indwelling catheter, failure to thrive who presents for evaluation possible syncopal episodes. Patient's sister is at bedside providing history. She states she was called by his facility and they reported patient had 10 second episode of shaking that was concerning for a seizure. EMS states patient was not postictal on arrival. Patient does not remember passing out or these events. He only remembers last laying in the bed and they he woke up in the ambulance. His sister reports patient has been losing wait and his doctor has told him he is malnourished. He reports productive cough for months. He denies chest pain or sob. He denies abdominal pain. He has C diff and he has 5 stools a day. He is awaiting fecal transplant at [facility]. Related Data Home Medications Medication Instructions Recorded Confirmed alfuzosin 10 mg tablet,extended 10 mg PO DAILY 10/16/19 05/25/20 release 24 hr finasteride 5 mg tablet 5 mg PO DAILY 10/16/19 05/25/20 mirabegron 50 mg tablet,extended 50 mg PO DAILY 10/16/19 05/25/20 release 24 hr triamcinolone acetonide 0.1 % 1 applic TOPICAL BID 10/16/19 05/25/20 topical ointment acetaminophen 650 mg PO Q6-8H PRN 01/11/20 05/25/20 prednisone 10 mg PO PER PKG DIR 01/19/20 05/25/20 tramadol 50 mg PO DAILY 01/19/20 05/25/20 Allergies Allergy/AdvReac Type Severity Reaction Status Date / Time rivaroxaban [From Xarelto] AdvReac Other Verified 01/16/20 18:05 Review of Systems Review of Systems: All systems reviewed & are unremarkable except as noted in HPI and below Constitutional: Constitutional: Denies chills and Reports weakness Eyes: Eyes: Reports no additional eye complaints Cardiovascular: Cardiovascular: Denies chest pain Respiratory: Respiratory: Reports cough and Denies dyspnea Gastrointestinal: Gastrointestinal: Denies abdominal pain and Reports diarrhea Genitourinary: Genitourinary: Denies dysuria Neurologic: Reports syncope and Reports weakness PMFSH Past Medical History Medical History Anemia Asperger syndrome C. difficile colitis Chronic, awaiting fecal transplant Chicken pox Chronic interstitial cystitis Dysphagia Failure to thrive Frequent urinary tract infections Hyperlipidemia Hypertension Osteoarthritis Vitamin D deficiency Surgical History Surgical History History of bladder surgery History of right hip replacement History of tonsillectomy Social History Social History (Updated 05/25/20 @ 16:31 by Shelley Ogden PA-C) Social History: He resides at [facility] His primary care provider is Dr. Rachid Rios. He designates his sister, Karin Olivares, as his surrogate decision maker and he wishes to be a full code. Smoking status: Never smoker Alcohol intake: former Drinks per week: 1 Substance use: never Living arrangements: [facility] Gender identity (if verbalized by the patient): Male Spiritual care concerns: No Agree to blood products: Yes Exam Const: General: no acute distress, alert and ill appearing chronically Nutritional Appearance: thin Orientation/consciousness: patient oriented x3 HENMT: Head: normocephalic and atraumatic Eyes: Pupils: Equal, round and reactive pupils present EOM: EOMs intact bilaterally Resp: Effort & Inspection: normal respiratory effort and no retractions Auscultation: clear to auscultation bilaterally Cardio: Rate: regular rate Rhythm: regular rhythm GI: GI Palp: Yes Soft to palpation, No Tenderness to palpation present (GI) and No Guarding due to palpation present (GI) Skin: Rashes: no rashes
--- NOTE | 2020-05-25 15:30 | PM.IMHP ---
H&P: HPI History of Present Illness Chief complaint: sepsis,pneumonia,uti,c diff Narrative: Date of admission: 05/25/2020 Lam James is a 64 year old male who is known to me from prior hospitalization with a PMH significant for chronic C. diff colitis, interstitial cystis with chronic indwelling Lange catheter and frequent UTIs, dysphagia with history of aspiration pneumonia, and Asperger's syndrome who presented to the emergency department on 05/25/2020 after having seizure-like activity witnessed by nursing staff at [facility] where he is a resident. I spoke with the nurse who stated that he had a full body convulsion after which he became very rigid and ?his eyes rolled back in his head.? He states that for the past several days he has been having tremors in in which his arms will shake uncontrollably. He also notes that he has been stuttering more frequently lately. His sister Karin is with him who is POA who also brought up several other medical concerns including poor appetite and failure to thrive. He states that he has lost his sense of taste. His CXR demonstrated bibasilar airspace opacities consistent with pneumonia. He endorses cough and shortness of breath, but this seems to be a chronic issue for him. He has a history of aspiration pneumonia and has been following with speech therapy. Nursing staff at [facility] said he was having hypoxia with O2 sats in the upper 80s, although he is maintaining adequate oxygenation here. He denies fever, chills, nausea, vomiting, dizziness, lightheadedness, chest pain or palpitations. Upon arrival to the medical floor, he had another episode of seizure-like activity in which he had convulsions for approximately 3 minutes witnessed by nursing staff. I returned to re-evaluate him and he was confused and would not follow commands. Review of Systems Review of Systems: Narrative: A 12 point review of systems was reviewed pertinent positives and negatives as per HPI. [facility] Past Medical History Medical History Anemia Asperger syndrome C. difficile colitis Chronic, awaiting fecal transplant Chicken pox Chronic interstitial cystitis Dysphagia Failure to thrive Frequent urinary tract infections Hyperlipidemia Hypertension Osteoarthritis Vitamin D deficiency Surgical History Surgical History History of bladder surgery History of right hip replacement History of tonsillectomy Family History Family History (Updated 05/25/20 @ 16:30 by Shelley Ogden PA-C) Mother Family history of malignant neoplasm of esophagus, Onset Age: 76 Father CAD (coronary artery disease) Hypertension HLD (hyperlipidemia) Diabetes mellitus Grandparent Cerebrovascular accident CAD (coronary artery disease) Kidney disease Social History Social History (Updated 05/25/20 @ 16:31 by Shelley Ogden PA-C) Social History: He resides at [facility]. His primary care provider is Dr. Rachid Rios. He designates his sister, Karin Olivares, as his surrogate decision maker and he wishes to be a full code. Smoking status: Never smoker Alcohol intake: former Drinks per week: 1 Substance use: never [facility] Gender identity (if verbalized by the patient): Male Spiritual care concerns: No Agree to blood products: Yes Meds Home Medications and Allergies Home Medications Medication Instructions Recorded Confirmed Type alfuzosin 10 mg tablet,extended 10 mg PO DAILY 10/16/19 01/17/20 History release 24 hr finasteride 5 mg tablet 5 mg PO DAILY 10/16/19 01/17/20 History mirabegron 50 mg tablet,extended 50 mg PO DAILY 10/16/19 01/17/20 History release 24 hr triamcinolone acetonide 0.1 % 1 applic TOPICAL BID 10/16/19 01/17/20 History topical ointment acetaminophen 650 mg PO Q6-8H PRN 01/11/20 01/17/20
[2020-05-25] MEDS: SODIUM CHLORIDE 0.9% IV 1,000 ML 80 ML IV CONT (18:44)
[2020-05-25] MEDS: POTASSIUM CHLORIDE 20 MEQ TABLET 40 MEQ PO ×2 (18:44→20:20)
[2020-05-25] MEDS: MAGNESIUM OXIDE 400 MG TABLET PO (18:45)
[2020-05-25] MEDS: metroNIDAZOLE 250 MG TABLET 500 MG PO ×2 (18:45→23:51)
--- NOTE | 2020-05-25 20:03 | PC.NURSE ---
1640 PT HALLOERED THAT HE COULD.T BREATHE, BODY BECAME RIGID MUSCLE ROJAS AND RELAXING TO LEFT ARM LASTED FOR ABOUT 3 MIN, THEN PT REMAINED UNREPSONSIVE, TRE HERE IN ROOM, EYE MOVING BACK AND FORTH IN SOCKET. [PT NOT VERBAL PUPILS 3 IN SIZE THIS LASTED ANOTHER 3 MIN. THEN PT WAS AROUSEABLE AND STARTED TO SPEAK.
[2020-05-25] MEDS: guaiFENesin 12 HR 600 MG TABCR PO (20:21)
[2020-05-25] MEDS: levETIRAcetam Tablet 250 MG, levETIRAcetam Tablet 500 MG 750 MG PO (20:21)
[2020-05-25] MEDS: VANCOMYCIN ORAL 125 MG/2.5 ML SYRUP PO ×2 (20:21→23:50)
[2020-05-25] MEDS: FAMOTIDINE 20 MG/2 ML VIAL IV PUSH (20:21)
[2020-05-25 23:03] LABS: SARS-CoV-2 RNA PCR Negative
[2020-05-26] VITALS (8 sets, daily range): BP systolic 99–108; BP diastolic 56–65; PULSE 72–90; RESP 18; TEMP 36.5–36.7; O2SAT 96–97
[2020-05-26] MEDS: metroNIDAZOLE 250 MG TABLET 500 MG PO ×4 (05:09→23:36)
[2020-05-26] MEDS: VANCOMYCIN ORAL 125 MG/2.5 ML SYRUP PO ×4 (05:09→23:36)
[2020-05-26 06:13] LABS: Basophils Absolute Auto 0.2 K/mm3 (0.0-0.1); Eosinophils Absolute Auto 0.1 K/mm3 (0-0.3); Eosinophils Percent Auto 0.4 % (0-4.4); Hematocrit 38.2 % (42.0-52.0); Hemoglobin 12.2 g/dL (14.0-18.0); Immature Granulocyte Absolute 0.33 K/mm3 (0.00-0.031); Lymphocytes Absolute Auto 1.75 K/mm3 (0.9-3.2); Lymphocytes Percent Auto 10.5 % (18.3-44.2); Mean Corpuscular HGB Conc 31.9 g/dl (32-36); Mean Corpuscular Hemoglobin 27.6 pg (26-34); Mean Corpuscular Volume 86.4 fl (80-100); Mean Platelet Volume 8.9 fl (7.4-10.4); Monocytes Absolute Auto 1.3 K/mm3 (0.1-0.6); Monocytes Percent Auto 7.7 % (2.6-8.5); Neutrophils Absolute Auto 13.1 K/mm3 (1.3-6.7); Neutrophils Percent Auto 78.4 % (45.5-73.1); Platelet Count Result 264 k/mm3 (150-375); Red Blood Count 4.42 M/mm3 (4.6-6.20); Red Cell Distribution Width 17.8 % (11.5-14.5); White Blood Count 16.7 K/mm3 (4.5-10.0)
[2020-05-26 06:23] LABS: Albumin Level 2.2 g/dL (3.5-5.1); Alkaline Phosphatase 89 U/L (38-126); Aspartate Amino Transferase 10 U/L (17-59); Bilirubin,Total 0.4 mg/dL (0.2-1.3); Blood Urea Nitrogen 13 mg/dL (9-20); Calcium 7.5 mg/dL (8.4-10.2); Carbon Dioxide 24 mmol/L (22-30); Chloride 106 mmol/L (98-107); Estimated Glomerular Filt Rate > 60; Glucose 92 mg/dL (75-110); Magnesium 1.5 mg/dL (1.6-2.3); Potassium 3.7 mmol/L (3.4-5.0); Sodium 136 mmol/L (137-145)
[2020-05-26 06:45] LABS: Alanine Aminotransferase < 4 U/L (4-50)
[2020-05-26] MEDS: guaiFENesin 12 HR 600 MG TABCR PO ×2 (09:28→21:25)
[2020-05-26] MEDS: SODIUM CHLORIDE 0.9% IV 1,000 ML 80 ML IV CONT (09:28)
[2020-05-26] MEDS: ENOXAPARIN 40 MG/0.4 ML SYRINGE SUB-Q (09:28)
[2020-05-26] MEDS: POTASSIUM CHLORIDE 20 MEQ TABLET PO (09:28)
[2020-05-26] MEDS: FAMOTIDINE 20 MG/2 ML VIAL IV PUSH ×2 (09:29→21:26)
[2020-05-26] MEDS: levETIRAcetam Tablet 250 MG, levETIRAcetam Tablet 500 MG 750 MG PO ×2 (09:30→21:25)
--- NOTE | 2020-05-26 13:49 | PCSTNOTE ---
Please refer to the Bedside Swallow Evaluation in the EMR. Please note, silent aspiration cannot be ruled out at bedside.
--- NOTE | 2020-05-26 16:08 | PM.IMPN ---
Progress Note: A&P Assessment and Plan (1) Seizure: Code(s): R56.9 - Unspecified convulsions Status: Acute Assessment and Plan: Patient had seizure witnessed by nursing staff with approximately 3 minutes of self-limited convulsions and postictal state following. He was also noted to have seizure-like activity at his nursing facility. He has no history of seizures in the etiology of his recent seizures is unclear at this time. Neurology has been consulted and their input is appreciated Continue Keppra 750 mg b.i.d. per neurology recommendations Amitriptyline has been held for now as well Begin neuro checks Q4 Monitor electrolytes Continue seizure precautions and monitor closely Await further recommendations from Neurology (2) Sepsis: Qualifiers: Acute renal failure type: unspecified Sepsis acute organ dysfunction status: with acute organ dysfunction Sepsis type: sepsis due to unspecified organism Severe sepsis acute organ dysfunction type: acute renal failure Severe sepsis shock status: without septic shock Qualified Code(s): A41.9 - Sepsis, unspecified organism; R65.20 - Severe sepsis without septic shock; N17.9 - Acute kidney failure, unspecified Code(s): A41.9 - Sepsis, unspecified organism Status: Resolved Assessment and Plan: Patient meets criteria for sepsis with tachycardia, tachypnea, and leukocytosis. Source of infection may be multifactorial given possible pneumonia on CXR, UA suggestive of UTI with chronic Lange, and chronic C diff colitis. Lactic acid is 1.4. Vitals are stable at this time Continue broad-spectrum IV antibiotics with Zosyn Will continue light IV fluids given decreased PO intake Blood culture, urine culture, and sputum culture pending Continue to monitor vitals closely (3) Pneumonia: Qualifiers: Pneumonia type: due to unspecified organism Laterality: right Lung location: lower lobe of lung Qualified Code(s): J18.9 - Pneumonia, unspecified organism Code(s): J18.9 - Pneumonia, unspecified organism Status: Acute Assessment and Plan: Presumably related to aspiration pneumonia given previous history. CXR demonstrates bibasilar airspace disease consistent with pneumonia. He endorses chronic cough and occasional shortness of breath; SOB has improved today. He is maintaining adequate oxygenation on room air. He is afebrile. WBC is down to 16.7k today. ST recommends mildly thick liquids with soft foods Continue IV Zosyn for broad-spectrum coverage for now Oxygen as needed to maintain saturation of 92% or above Supportive care with bronchodilators as needed, Mucinex, and acetaminophen as needed for fever Will attempt collection of sputum culture. Will check Legionella and pneumococcal urinary antigens Blood cultures are pending (4) Urinary tract infection: Qualifiers: Urinary tract infection type: catheter-associated UTI Indwelling urinary catheter type: indwelling urethral catheter Encounter type: initial encounter Qualified Code(s): T83.511A - Infection and inflammatory reaction due to indwelling urethral catheter, initial encounter; N39.0 - Urinary tract infection, site not specified Code(s): N39.0 - Urinary tract infection, site not specified Status: Acute Assessment and Plan: Patient has chronic indwelling Lange catheter and history of multiple urinary tract infections. His previous urine culture at this facility grew Pseudomonas aeruginosa. He is afebrile and denies any urinary symptoms with Lange placed but does note recent dark urine. Leukocytosis is improving Begin Zosyn for broad-spectrum coverage. Previous UTI was susceptible. Continue light IV fluids Await urine cultures and blood cultures (5) C. diffic
[2020-05-26] MEDS: SODIUM CHLORIDE 0.9% IV 1,000 ML 65 ML IV CONT ×2 (16:22→21:27)
--- NOTE | 2020-05-26 17:16 | CONS_ITS ---
DATE OF CONSULTATION: HISTORY OF PRESENT ILLNESS: This 64-year-old right-handed male has been admitted to [facility] on 05/25/2020 for the possibility of seizure-like activity witnessed by the nursing staff in the [facility] where it was documented he had full body convulsion, became rigid, eyes rolled back into his head. For the last several days, he has been experiencing tremors in which his upper extremities will shake uncontrollably. In addition, he has also been noted to have stuttering more frequently laterally. His additional problem has been noted to be anorexia. Most recent chest x-ray demonstrated findings suggestive of the pneumonia with shortness of breath as per him and also history of aspiration pneumonia in the past. He is on oxygen supplement. His arterial oxygen runs in 80s, but he is maintaining adequate oxygenation. Gave no history of nausea, vomiting, fever, chills, dizziness, lightheadedness, chest pain or palpitation. He did have another episode of seizure-like activity for approximately 3 minutes, witnessed by the nursing staff here. PAST MEDICAL HISTORY: He does carry the ongoing diagnoses of 1. Past significant history of chronic C difficile. 2. Interstitial cystitis. 3. Chronic indwelling Lange catheter with frequent UTI. 4. Dyspepsia. 5. History of aspiration pneumonia. 6. Asperger syndrome. PAST SURGICAL HISTORY: He has undergone bladder surgery, right hip replacement, tonsillectomy. SOCIAL HISTORY: He is a never smoker. One drink per week. Never substance abuser. Lives in a detention. MEDICATIONS: Included finasteride 5 mg daily, mirabegron 50 mg daily, prednisone 10 mg daily, tramadol 50 mg daily, amitriptyline 25 mg daily, and simvastatin 20 mg daily. ALLERGIES: HE IS ALLERGIC TO RIVAROXABAN, THAT IS XARELTO. PHYSICAL EXAMINATION: VITAL SIGNS: Evaluation up until now documented him to be afebrile with temp of 98.3, pulse 110, respirations 20, blood pressure 98/74, initially it was 110/75, pulse ox 95%. GENERAL: On examination, he is awake, alert, cooperative, in no obvious acute distress, looks thin, somewhat ill-appearing but again no acute distress. HEENT: Head normocephalic with no cranial bruit. Ears, nose, throat examination normal. NECK: Supple with no thyromegaly. No lymphadenopathy. No meningeal signs. HEART: Regular with no murmur. LUNGS: Clear except the occasional rhonchi. ABDOMEN: Soft with no organomegaly. NEUROLOGICAL: He is awake, alert, oriented x3. Speech not dysphasic, not dysarthric, not dysphonic. Pupils round, regular. Graham of vision full. Extraocular movements full. Face symmetrical. Tongue midline. Motor examination revealed him to have decreased strength 4/5, but no drift against gravity. Reflexes symmetrical. Plantars downgoing. LABORATORY DATA: Evaluation up until now included CBC with WBC 27.1, hemoglobin 14.3, platelet count 313. Basic metabolic panel with sodium 134, potassium 2.9, chloride 102, CO2 of 24, BUN 15, creatinine 0.7, glucose 133, calcium 8.1. Hepatic enzymes normal except alkaline phos of 132 and albumin only 2.9, but AST 12, ALT 6, direct bilirubin 0. UA with 2+ protein. IMPRESSION: Patient has been admitted with the history of seizures, has been started on 750 of Keppra twice a day because of history of seizure. His CBC has revealed him to have leukocytosis with platelet count of 264. INR of 1.4, APTT 38.3, pCO2 of 30.3 ABG with 71.1 PO2 and electrolytes normal. Calcium 7.5 with magnesium 1.5. Hepatic enzymes normal, though albumin is only 2.2. He had a CT scan of the head, which documented no bleed, no space-occupying lesion and chest x-ray also has been only with bibasilar airspace disease suggestive of pneumonia. The
[2020-05-26] MEDS: TRIAMCINOLONE ACET 0.1% OINT 15 GM TUBE 1 APPLIC TOPICAL (21:26)
[2020-05-27] VITALS (10 sets, daily range): BP systolic 95–132; BP diastolic 51–67; PULSE 64–93; RESP 16–20; TEMP 36.4–37.1; O2SAT 91–99
[2020-05-27 06:15] LABS: Basophils Absolute Auto 0.1 K/mm3 (0.0-0.1); Basophils Percent Auto 0.7 % (0.2-1.2); Eosinophils Absolute Auto 0.1 K/mm3 (0-0.3); Hematocrit 34.6 % (42.0-52.0); Immature Granulocyte Percent A 1.6 % (0-0.5); Lymphocytes Absolute Auto 1.99 K/mm3 (0.9-3.2); Lymphocytes Percent Auto 15.8 % (18.3-44.2); Mean Corpuscular HGB Conc 31.8 g/dl (32-36); Mean Corpuscular Hemoglobin 27.4 pg (26-34); Mean Corpuscular Volume 86.3 fl (80-100); Mean Platelet Volume 8.6 fl (7.4-10.4); Monocytes Absolute Auto 0.9 K/mm3 (0.1-0.6); Monocytes Percent Auto 7.4 % (2.6-8.5); Neutrophils Absolute Auto 9.3 K/mm3 (1.3-6.7); Neutrophils Percent Auto 73.5 % (45.5-73.1); Platelet Count Result 256 k/mm3 (150-375); Red Blood Count 4.01 M/mm3 (4.6-6.20); White Blood Count 12.6 K/mm3 (4.5-10.0)
[2020-05-27 06:25] LABS: Alkaline Phosphatase 78 U/L (38-126); Aspartate Amino Transferase 10 U/L (17-59); Bilirubin,Total 0.2 mg/dL (0.2-1.3); Blood Urea Nitrogen 11 mg/dL (9-20); Calcium 7.2 mg/dL (8.4-10.2); Carbon Dioxide 19 mmol/L (22-30); Chloride 110 mmol/L (98-107); Estimated Glomerular Filt Rate > 60; Glucose 70 mg/dL (75-110); Magnesium 1.5 mg/dL (1.6-2.3); Potassium 3.7 mmol/L (3.4-5.0); Sodium 136 mmol/L (137-145)
[2020-05-27] MEDS: metroNIDAZOLE 250 MG TABLET 500 MG PO ×3 (06:27→18:00)
[2020-05-27] MEDS: VANCOMYCIN ORAL 125 MG/2.5 ML SYRUP PO ×3 (06:28→18:00)
[2020-05-27 06:48] LABS: Alanine Aminotransferase < 4 U/L (4-50)
[2020-05-27] MEDS: SIMVASTATIN 20 MG TABLET PO (10:05)
[2020-05-27] MEDS: FLUCONAZOLE 100 MG TABLET PO (10:05)
[2020-05-27] MEDS: levETIRAcetam Tablet 250 MG, levETIRAcetam Tablet 500 MG 750 MG PO (10:06)
[2020-05-27] MEDS: FAMOTIDINE 20 MG/2 ML VIAL IV PUSH ×2 (10:06→21:53)
[2020-05-27] MEDS: guaiFENesin 12 HR 600 MG TABCR PO ×2 (10:07→21:54)
[2020-05-27] MEDS: FINASTERIDE 5 MG TABLET PO (10:07)
[2020-05-27] MEDS: ENOXAPARIN 40 MG/0.4 ML SYRINGE SUB-Q (10:07)
[2020-05-27] MEDS: MAGNESIUM SULF 2 GM/WATER 50ML 2 GM/50 ML BAG IVPB (10:08)
[2020-05-27] MEDS: TRIAMCINOLONE ACET 0.1% OINT 15 GM TUBE 1 APPLIC TOPICAL ×2 (10:10→18:15)
[2020-05-27] MEDS: POTASSIUM CHLORIDE 20 MEQ TABLET PO (10:10)
--- NOTE | 2020-05-27 11:11 | PM.IMPN ---
Progress Note: A&P Assessment and Plan (1) Seizure: Code(s): R56.9 - Unspecified convulsions Status: Acute Assessment and Plan: Today, patient had seizure-like activity witnessed by nursing staff with approximately 2-3 minutes of convulsions and rigidness and subsequent postictal state of confusion as to what happened but was A&Ox4 for me afterwards; ativan was given. He was also noted to have seizure-like activity at his nursing facility and earlier this stay. He has no history of seizures in the etiology of his recent seizures is unclear at this time. Neurology has been consulted and their input is appreciated Discussed with Dr. Conner who recommended increasing Keppra to 1000 mg Q12 per neurology recommendations Amitriptyline has been held for now as well. Dr. Conner stated he will adjust/resume this medication if appropriate Begin neuro checks Q4 Monitor electrolytes Continue seizure precautions and monitor closely Await further recommendations from Neurology (2) Sepsis: Qualifiers: Acute renal failure type: unspecified Sepsis acute organ dysfunction status: with acute organ dysfunction Sepsis type: sepsis due to unspecified organism Severe sepsis acute organ dysfunction type: acute renal failure Severe sepsis shock status: without septic shock Qualified Code(s): A41.9 - Sepsis, unspecified organism; R65.20 - Severe sepsis without septic shock; N17.9 - Acute kidney failure, unspecified Code(s): A41.9 - Sepsis, unspecified organism Status: Resolved Assessment and Plan: Patient meets criteria for sepsis with tachycardia, tachypnea, and leukocytosis. Source of infection may be multifactorial given possible pneumonia on CXR, UA suggestive of UTI with chronic Laneg, and chronic C diff colitis. Lactic acid is 1.4. Vitals are stable at this time although patient appears to have sys BP of 90s. He appears to run on the softer side. BCx NGTD x 2. UCx growing yeast; sensitivities requested Continue broad-spectrum IV antibiotics with Zosyn Will add Diflucan for 7 days given UCx results growing yeast Will continue light IV fluids given decreased PO intake and soft BP sputum culture to be collected Continue to monitor vitals closely (3) Pneumonia: Qualifiers: Laterality: right Lung location: lower lobe of lung Pneumonia type: due to unspecified organism Qualified Code(s): J18.9 - Pneumonia, unspecified organism Code(s): J18.9 - Pneumonia, unspecified organism Status: Acute Assessment and Plan: Presumably related to aspiration pneumonia given previous history. CXR demonstrates bibasilar airspace disease consistent with pneumonia. He endorses chronic cough and occasional shortness of breath; SOB stable. He is maintaining adequate oxygenation on room air. He is afebrile. WBC is down to 12.6k today. ST recommends mildly thick liquids with soft foods Continue IV Zosyn for broad-spectrum coverage for now Oxygen as needed to maintain saturation of 92% or above Supportive care with bronchodilators as needed, Mucinex, and acetaminophen as needed for fever Will attempt collection of sputum culture. Will check Legionella and pneumococcal urinary antigens Blood cultures NGTD x2 (4) Urinary tract infection: Qualifiers: Encounter type: initial encounter Indwelling urinary catheter type: indwelling urethral catheter Urinary tract infection type: catheter-associated UTI Qualified Code(s): T83.511A - Infection and inflammatory reaction due to indwelling urethral catheter, initial encounter; N39.0 - Urinary tract infection, site not specified Code(s): N39.0 - Urinary tract infection, site not specified Status: Acute Assessment and Plan: Patient has chronic indwelling Lange catheter and history of multiple uri
[2020-05-27] MEDS: SODIUM CHLORIDE 0.9% IV 1,000 ML 65 ML IV CONT (17:13)
[2020-05-27 19:12] LABS: Glucose Point of Care 59 (65-105)
[2020-05-27 19:12] LABS: Glucose Point of Care 74 (65-105)
[2020-05-27] MEDS: DEXTROSE 5%/0.9% SOD CHL 1,000 ML 65 ML (20:40)
[2020-05-27] MEDS: levETIRAcetam 500 MG TABLET 1000 MG PO (21:53)
[2020-05-27] MEDS: AMITRIPTYLINE HCL 25 MG TABLET PO (21:53)
[2020-05-28] VITALS (9 sets, daily range): BP systolic 99–110; BP diastolic 62–63; PULSE 68–93; RESP 16–18; TEMP 36.4–36.7; O2SAT 98–100; BMI 21.4
[2020-05-28] MEDS: VANCOMYCIN ORAL 125 MG/2.5 ML SYRUP PO ×5 (00:13→23:58)
[2020-05-28] MEDS: metroNIDAZOLE 250 MG TABLET 500 MG PO ×5 (00:13→23:58)
[2020-05-28 00:41] LABS: Glucose Point of Care 93 (65-105)
[2020-05-28 06:06] LABS: Basophils Absolute Auto 0.1 K/mm3 (0.0-0.1); Basophils Percent Auto 0.5 % (0.2-1.2); Eosinophils Absolute Auto 0.2 K/mm3 (0-0.3); Eosinophils Percent Auto 1.4 % (0-4.4); Hematocrit 34.6 % (42.0-52.0); Hemoglobin 11.2 g/dL (14.0-18.0); Immature Granulocyte Absolute 0.15 K/mm3 (0.00-0.031); Immature Granulocyte Percent A 1.4 % (0-0.5); Lymphocytes Absolute Auto 1.79 K/mm3 (0.9-3.2); Lymphocytes Percent Auto 17.1 % (18.3-44.2); Mean Corpuscular HGB Conc 32.4 g/dl (32-36); Mean Corpuscular Hemoglobin 27.9 pg (26-34); Mean Corpuscular Volume 86.1 fl (80-100); Mean Platelet Volume 8.5 fl (7.4-10.4); Monocytes Absolute Auto 0.8 K/mm3 (0.1-0.6); Neutrophils Absolute Auto 7.5 K/mm3 (1.3-6.7); Neutrophils Percent Auto 71.6 % (45.5-73.1); Platelet Count Result 244 k/mm3 (150-375); Red Blood Count 4.02 M/mm3 (4.6-6.20); Red Cell Distribution Width 18.3 % (11.5-14.5); White Blood Count 10.5 K/mm3 (4.5-10.0)
[2020-05-28 06:25] LABS: Albumin Level 1.9 g/dL (3.5-5.1); Alkaline Phosphatase 72 U/L (38-126); Aspartate Amino Transferase 10 U/L (17-59); Bilirubin,Total 0.1 mg/dL (0.2-1.3); Blood Urea Nitrogen 8 mg/dL (9-20); Calcium 7.1 mg/dL (8.4-10.2); Carbon Dioxide 20 mmol/L (22-30); Chloride 109 mmol/L (98-107); Estimated Glomerular Filt Rate > 60; Glucose 87 mg/dL (75-110); Magnesium 1.8 mg/dL (1.6-2.3); Potassium 3.3 mmol/L (3.4-5.0); Sodium 135 mmol/L (137-145)
--- NOTE | 2020-05-28 07:00 | NEURO_ITS ---
TEST: ELECTROENCEPHALOGRAM DIAGNOSIS: SEIZURES PATIENT NUMBER: [id number] EEG NUMBER: [id number] RECORDING DATE: 05/28/20 CONDITION OF RECORDING: Drowsy and sleep EEG DESCRIPTION: The whole record consists of diffused low voltage 15-18beta activity mixed with intermittent low voltage poorly organized 8-9hz alpha activity posteriorly. Bilateral symmetrical sleep activity is seen during sleep. Movement and muscle artifacts are seen throughout the tracing. Nonparoxysmal. Nonfocal. Nonlateralizing. IMPRESSION: No significant abnormalities noted. MTDD
[2020-05-28 07:38] LABS: Alanine Aminotransferase < 4 U/L (4-50)
[2020-05-28] MEDS: ENOXAPARIN 40 MG/0.4 ML SYRINGE SUB-Q (09:48)
[2020-05-28] MEDS: FINASTERIDE 5 MG TABLET PO (09:48)
[2020-05-28] MEDS: DEXTROSE 5%/0.9% SOD CHL 1,000 ML 65 ML IV CONT (09:48)
[2020-05-28] MEDS: guaiFENesin 12 HR 600 MG TABCR PO ×2 (09:49→20:44)
[2020-05-28] MEDS: SIMVASTATIN 20 MG TABLET PO (09:49)
[2020-05-28] MEDS: levETIRAcetam 500 MG TABLET 1000 MG PO (09:49)
[2020-05-28] MEDS: CEFDINIR 300 MG CAPSULE PO ×2 (09:49→20:44)
[2020-05-28] MEDS: DOXYCYCLINE HYCLATE 100 MG TABLET PO ×2 (09:50→20:44)
[2020-05-28] MEDS: FAMOTIDINE 20 MG/2 ML VIAL IV PUSH ×2 (09:50→20:44)
[2020-05-28] MEDS: FLUCONAZOLE 100 MG TABLET PO (09:50)
[2020-05-28] MEDS: POTASSIUM CHLORIDE 20 MEQ TABLET 40 MEQ PO (09:50)
[2020-05-28] MEDS: TRIAMCINOLONE ACET 0.1% OINT 15 GM TUBE 1 APPLIC TOPICAL ×2 (09:51→17:48)
--- NOTE | 2020-05-28 11:09 | WPDNEUROPN ---
Progress Note: A&P Assessment and Plan (1) Sepsis: Code(s): A41.9 - Sepsis, unspecified organism Status: Acute (2) Suspected COVID-19 virus infection: Code(s): Z20.828 - Contact with and (suspected) exposure to other viral communicable diseases Status: Ruled-out (3) Seizure: Code(s): R56.9 - Unspecified convulsions Status: Acute (4) Maceration of skin: Code(s): L98.8 - Other specified disorders of the skin and subcutaneous tissue Status: Acute (5) Hypokalemia: Code(s): E87.6 - Hypokalemia Status: Acute (6) Failure to thrive: Qualifiers: Failure to thrive age range: in adult Qualified Code(s): R62.7 - Adult failure to thrive Status: Acute (7) C. difficile colitis: Code(s): A04.72 - Enterocolitis due to Clostridium difficile, not specified as recurrent Status: Acute (8) Pneumonia: Qualifiers: Pneumonia type: due to unspecified organism Laterality: right Lung location: lower lobe of lung Qualified Code(s): J18.9 - Pneumonia, unspecified organism Code(s): J18.9 - Pneumonia, unspecified organism Status: Acute (9) Urinary tract infection: Qualifiers: Urinary tract infection type: catheter-associated UTI Indwelling urinary catheter type: indwelling urethral catheter Encounter type: initial encounter Qualified Code(s): T83.511A - Infection and inflammatory reaction due to indwelling urethral catheter, initial encounter; N39.0 - Urinary tract infection, site not specified Code(s): N39.0 - Urinary tract infection, site not specified Status: Acute (10) Weakness: Code(s): R53.1 - Weakness Status: Acute (11) Sepsis: Qualifiers: Acute renal failure type: unspecified Sepsis acute organ dysfunction status: with acute organ dysfunction Sepsis type: sepsis due to unspecified organism Severe sepsis acute organ dysfunction type: acute renal failure Severe sepsis shock status: without septic shock Qualified Code(s): A41.9 - Sepsis, unspecified organism; R65.20 - Severe sepsis without septic shock; N17.9 - Acute kidney failure, unspecified Code(s): A41.9 - Sepsis, unspecified organism Status: Resolved (12) Pancolitis: Code(s): K51.00 - Ulcerative (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 complications Status: Acute (13) Splenic mass: Code(s): R16.1 - Splenomegaly, not elsewhere classified Status: Acute (14) Bilateral renal masses: Code(s): N28.89 - Other specified disorders of kidney and ureter Status: Acute (15) Osteoarthritis: Qualifiers: Osteoarthritis location: hip Osteoarthritis type: unspecified Laterality: left Qualified Code(s): M16.12 - Unilateral primary osteoarthritis, left hip Code(s): M19.90 - Unspecified osteoarthritis, unspecified site Status: Chronic (16) History of Clostridioides difficile infection: Code(s): Z86.19 - Personal history of other infectious and parasitic diseases Status: Acute (17) Ambulatory dysfunction: Code(s): R26.2 - Difficulty in walking, not elsewhere classified Status: Acute (18) Leukocytosis: Qualifiers: Leukocytosis type: unspecified Qualified Code(s): D72.829 - Elevated white blood cell count, unspecified Code(s): D72.829 - Elevated white blood cell count, unspecified Status: Acute (19) Anemia: Qualifiers: Anemia type: unspecified type Qualified Code(s): D64.9 - Anemia, unspecified Code(s): D64.9 - Anemia, unspecified Status: Chronic (20) Asperger syndrome: Code(s): F84.5 - Asperger's syndrome Status: Acute (21) Rash: Code(s): R21 - Rash and other nonspecific skin eruption Status: Acute (22) Hypertension: Qualifiers: Hypertension type: unspecified Qualified Code(s): I10 - Essential (primary) hypertension Code(s): I10 -
--- NOTE | 2020-05-28 11:48 | PM.IMPN ---
Progress Note: A&P Assessment and Plan (1) Seizure: Code(s): R56.9 - Unspecified convulsions Status: Acute Assessment and Plan: Today, patient had seizure-like activity witnessed by nursing staff with approximately 2-3 minutes of convulsions and rigidness and subsequent postictal state of confusion, but was answering questions appropriately shortly afterword. A&Ox4 during my visit. He was also noted to have seizure-like activity at his nursing facility and earlier this stay. He has no history of seizures in the etiology of his recent seizures is unclear at this time. Possibly concern for psychogenic seizure. Dr. Conner made aware and stated no seizure like activity on EEG. He rec continuing Keppra at 1000 mg Q12 Neurology has been consulted and their input is appreciated Discussed with Dr. Conner who recommended continuing Keppra to [address] Conner has cleared patient for discharge from his standpoint pending brain MRI per his recommendations Amitriptyline resumed yesterday Begin neuro checks Q4 Monitor electrolytes Continue seizure precautions and monitor closely Await further recommendations from Neurology (2) Sepsis: Qualifiers: Acute renal failure type: unspecified Sepsis acute organ dysfunction status: with acute organ dysfunction Sepsis type: sepsis due to unspecified organism Severe sepsis acute organ dysfunction type: acute renal failure Severe sepsis shock status: without septic shock Qualified Code(s): A41.9 - Sepsis, unspecified organism; R65.20 - Severe sepsis without septic shock; N17.9 - Acute kidney failure, unspecified Code(s): A41.9 - Sepsis, unspecified organism Status: Resolved Assessment and Plan: Patient meets criteria for sepsis with tachycardia, tachypnea, and leukocytosis. Source of infection may be multifactorial given possible pneumonia on CXR, UA suggestive of UTI with chronic Lange, and chronic C diff colitis. Lactic acid is 1.4. Vitals are stable at this time although patient appears to have sys BP of 100s. He appears to run on the softer side. BCx NGTD x 2. UCx growing yeast; sensitivities requested Zosyn switched to PO cefdinir and doxycycline Will continue Diflucan for 7 days given UCx results growing yeast Will continue light IV fluids given decreased PO intake and soft BP sputum culture to be collected Continue to monitor vitals closely (3) Pneumonia: Qualifiers: Pneumonia type: due to unspecified organism Laterality: right Lung location: lower lobe of lung Qualified Code(s): J18.9 - Pneumonia, unspecified organism Code(s): J18.9 - Pneumonia, unspecified organism Status: Acute Assessment and Plan: Presumably related to aspiration pneumonia given previous history. CXR demonstrates bibasilar airspace disease consistent with pneumonia. He endorses chronic cough and occasional shortness of breath; SOB stable. He is maintaining adequate oxygenation on room air. He is afebrile. WBC is down to 10.5k today. ST recommends mildly thick liquids with minced and moist foods Switch to cefdinir and doxycycline. Anticipate several more days of therapy as outpatient Oxygen as needed to maintain saturation of 92% or above Supportive care with bronchodilators as needed, Mucinex, and acetaminophen as needed for fever Will attempt collection of sputum culture. Will check Legionella and pneumococcal urinary antigens Blood cultures NGTD x2 (4) Urinary tract infection: Qualifiers: Urinary tract infection type: catheter-associated UTI Indwelling urinary catheter type: indwelling urethral catheter Encounter type: initial encounter Qualified Code(s): T83.511A - Infection and inflammatory reaction due to indwelling urethral catheter, initial encounter; N39.0 - Urinary tract infection,
[2020-05-28 14:41] LABS: Pneumococcal Antigen Urine Not Detected (Not Detected)
[2020-05-28 18:19] LABS: Glucose Point of Care 101 (65-105)
[2020-05-28 20:35] LABS: Legionella pneumophila Ag Ur Not Detected (Not Detected)
[2020-05-28] MEDS: levETIRAcetam 1000MG/NACL100ML 1,000 MG/100 ML BAG 400 MG IVPB (20:44)
[2020-05-28 21:56] LABS: Glucose Point of Care 104 (65-105)
[2020-05-29] VITALS (12 sets, daily range): BP systolic 104–148; BP diastolic 61–98; PULSE 77–121; RESP 16–20; TEMP 36.3–36.6; O2SAT 98–99
[2020-05-29] MEDS: DEXTROSE 5%/0.9% SOD CHL 1,000 ML 65 ML IV CONT ×2 (03:39→21:00)
[2020-05-29] MEDS: VANCOMYCIN ORAL 125 MG/2.5 ML SYRUP PO ×3 (05:44→17:53)
[2020-05-29] MEDS: metroNIDAZOLE 250 MG TABLET 500 MG PO ×3 (05:44→17:53)
--- NOTE | 2020-05-29 06:25 | PM.EVENT ---
Event Note Event Note Event Note: This is a 64 year old male who is being treated for seizures, sepsis, pneumonia, and c. diff colitis who tonight suddenly started to exhibit seizure like activity when the nurses were cleaning him up. The patient's seizure activity lasted about 2 minutes in duration. On my arrival to bedside the patient is no longer exhibiting any seizure like activity. He is alert and oriented although postictal. The patient did not bite his tongue. He has no complaints at this time. Vitals are stable. Nursing staff will call Neurology, Dr. Conner to update him on the patient's condition.
[2020-05-29 08:14] LABS: Glucose Point of Care 83 (65-105)
[2020-05-29 08:43] LABS: Albumin Level 2.1 g/dL (3.5-5.1); Alkaline Phosphatase 75 U/L (38-126); Aspartate Amino Transferase 10 U/L (17-59); Bilirubin,Total 0.2 mg/dL (0.2-1.3); Blood Urea Nitrogen 5 mg/dL (9-20); Calcium 7.4 mg/dL (8.4-10.2); Carbon Dioxide 21 mmol/L (22-30); Chloride 110 mmol/L (98-107); Estimated CRCL calculation 114 ml/min; Estimated Glomerular Filt Rate > 60; Glucose 95 mg/dL (75-110); Magnesium 1.5 mg/dL (1.6-2.3); Potassium 3.5 mmol/L (3.4-5.0); Sodium 136 mmol/L (137-145)
[2020-05-29 08:53] LABS: Alanine Aminotransferase < 4 U/L (4-50); Basophils Percent Auto 0.3 % (0.2-1.2); Eosinophils Percent Auto 0.5 % (0-4.4); Hematocrit 38.4 % (42.0-52.0); Hemoglobin 12.4 g/dL (14.0-18.0); Immature Granulocyte Absolute 0.09 K/mm3 (0.00-0.031); Lymphocytes Absolute Auto 1.05 K/mm3 (0.9-3.2); Lymphocytes Percent Auto 11.9 % (18.3-44.2); Mean Corpuscular HGB Conc 32.3 g/dl (32-36); Mean Corpuscular Hemoglobin 28.1 pg (26-34); Mean Corpuscular Volume 87.1 fl (80-100); Mean Platelet Volume 9.2 fl (7.4-10.4); Monocytes Absolute Auto 0.6 K/mm3 (0.1-0.6); Neutrophils Percent Auto 79.3 % (45.5-73.1); Platelet Count Result 267 k/mm3 (150-375); Red Blood Count 4.41 M/mm3 (4.6-6.20); Red Cell Distribution Width 18.6 % (11.5-14.5); White Blood Count 8.8 K/mm3 (4.5-10.0)
--- NOTE | 2020-05-29 09:07 | PM.IMPN ---
Progress Note: A&P Assessment and Plan (1) Seizure: Code(s): R56.9 - Unspecified convulsions Status: Acute Assessment and Plan: Today, patient had seizure-like activity witnessed by nursing staff with approximately 2 minutes of convulsions subsequent postictal state of confusion, similar to prior episodes. A&Ox4 during my visit. He was also noted to have seizure-like activity at his nursing facility and multiple other episodes earlier this stay. He has no history of seizures and the etiology of his recent seizures is unclear at this time. Possibly concern for pseudoseizure, meningitis less likely given VS/labs. Dr. Conner made aware and stated no seizure like activity on EEG. He rec continuing Keppra at 1000 mg Q12. I have spoken to the patient and sister today and recommended transfer to [facility] for higher level of care and where patient has had multiple admissions and follows with specialists there; both were agreeable and comfortable with plan. Brain MRI notable for minimal microangiopathy. Neurology has been consulted and their input is appreciated Discussed with Dr. Conner who recommended continuing Keppra to [address] Conner has cleared patient for discharge from his standpoint, however, I believe it is best patient be transferred to [facility] given his recurrent seizure-like episodes despite Keppra treatment Amitriptyline was not on Med rec at recent discharge from [facility] per records obtained yesterday; still unclear when or who prescribed this medication. I have asked nursing to confirm this med with [facility]. Will hold in meantime as possible cause for seizure like activity Begin neuro checks Q4 Monitor electrolytes Continue seizure precautions and monitor closely Call placed for [facility] transer to their hospitalist service; awaiting call back (2) Sepsis: Qualifiers: Acute renal failure type: unspecified Sepsis acute organ dysfunction status: with acute organ dysfunction Sepsis type: sepsis due to unspecified organism Severe sepsis acute organ dysfunction type: acute renal failure Severe sepsis shock status: without septic shock Qualified Code(s): A41.9 - Sepsis, unspecified organism; R65.20 - Severe sepsis without septic shock; N17.9 - Acute kidney failure, unspecified Code(s): A41.9 - Sepsis, unspecified organism Status: Resolved Assessment and Plan: Patient meets criteria for sepsis with tachycardia, tachypnea, and leukocytosis. Source of infection may be multifactorial given possible pneumonia on CXR, UA suggestive of UTI with chronic Lange, and chronic C diff colitis. Lactic acid is 1.4. Vitals are stable at this time although patient appears to have sys BP of 100s. He appears to run on the softer side. BCx NGTD x 2. UCx growing yeast; sensitivities requested Continue cefdinir and doxycycline; antibiotic treatment for PNA day 5 Will continue Diflucan for 7 days given UCx results growing yeast; day 3 of 7 of treatment course Will continue light IV fluids given decreased PO intake and soft BP sputum culture to be collected Continue to monitor vitals closely (3) Pneumonia: Qualifiers: Pneumonia type: due to unspecified organism Laterality: right Lung location: lower lobe of lung Qualified Code(s): J18.9 - Pneumonia, unspecified organism Code(s): J18.9 - Pneumonia, unspecified organism Status: Acute Assessment and Plan: Presumably related to aspiration pneumonia given previous history. CXR demonstrates bibasilar airspace disease consistent with pneumonia. He endorses chronic cough and occasional shortness of breath; SOB stable. He is maintaining adequate oxygenation on room air. He is afebrile. WBC is down to 10.5k today. ST recommends mildly thick liquids with minced and moist foods. Ur antigens negative. Blood cultures NGTD x2 Continue with cefdinir and doxycycline a
[2020-05-29] MEDS: levETIRAcetam 1000MG/NACL100ML 1,000 MG/100 ML BAG 400 MG IVPB ×2 (09:42→20:59)
[2020-05-29] MEDS: POTASSIUM CHLORIDE 20 MEQ PACKET (FOR LIQUID) 40 MEQ PO (09:45)
[2020-05-29] MEDS: FINASTERIDE 5 MG TABLET PO (09:47)
[2020-05-29] MEDS: CEFDINIR 300 MG CAPSULE PO ×2 (09:47→20:59)
[2020-05-29] MEDS: DOXYCYCLINE HYCLATE 100 MG TABLET PO ×2 (09:47→20:59)
[2020-05-29] MEDS: FAMOTIDINE 20 MG/2 ML VIAL IV PUSH ×2 (09:47→20:59)
[2020-05-29] MEDS: SIMVASTATIN 20 MG TABLET PO (09:47)
[2020-05-29] MEDS: guaiFENesin 12 HR 600 MG TABCR PO ×2 (09:47→20:59)
[2020-05-29] MEDS: ENOXAPARIN 40 MG/0.4 ML SYRINGE SUB-Q (09:47)
[2020-05-29] MEDS: FLUCONAZOLE 100 MG TABLET PO (09:48)
[2020-05-29] MEDS: MAGNESIUM SULF 1 GM/D5W 100 ML 1 GM/100 ML BAG IVPB (09:48)
[2020-05-29 12:08] LABS: Glucose Point of Care 97 (65-105)
--- NOTE | 2020-05-29 12:30 | PCDIET ---
Nutrition Follow-Up Complete: Inadequate Oral Intake as related to Pneumonia/possible UTI as evidenced by poor po intake/loss of appetite. Meet estimated nutritional needs Goal: Goal not met. Continue goal. Pt current nutrition is minced and moist Level 5 and mildly thick liquids+ Thrive and Enlive TID Recommendation: Provide EN or PPN Wt: 64 kg (recommend new wt) Bowel Motility:Diarrhea (chronic c diff, awaiting fecal transplant) Labs Reviewed:Albumin 2.1, protein 5.0, Mg 1.5 Meds Noted:Ativan, keppra, difulcan, zosyn, flagyl Additional Notes: Pt on appropriate diet and offered nutritional support supplements TID (Enlive and Thrive). Ensure Enlive provides 350kcal, 20g of protein, and 26 essential vitamins and minerals per serving. Thrive provides 9 grams of protein, 24 vitamins and minerals, 6grams of fiber, and 270 kcal per serving. Pt eating VERY LITTLE (average is .07% from intakes of 5, 0, 10% his entire stay). Pt may benefit from getting 50% of needs met from additional nutrition sources of either PPN support at 70ml/hr with 250ml 20% lipids to provide 1153 kcals or Jevity 1.2 at 40nml/hr to provide 1056kcals until PO intake can improve. Assistance with feedings may also be beneficial to improve intake. We will monitor PO intake, diet, and wt every three days.
[2020-05-29] MEDS: TRIAMCINOLONE ACET 0.1% OINT 15 GM TUBE 1 APPLIC TOPICAL ×2 (13:13→17:52)
[2020-05-29] MEDS: MEGESTROL ACETATE (*CHEMO) ORAL SUSP 40 MG/ML SYR 650 MG PO (13:15)
[2020-05-29 18:06] LABS: Glucose Point of Care 85 (65-105)
[2020-05-29] MEDS: ATORVASTATIN 10 MG TABLET PO (20:59)
[2020-05-29 23:23] LABS: Glucose Point of Care 94 (65-105)
[2020-05-30] VITALS (8 sets, daily range): BP systolic 109–141; BP diastolic 66–87; PULSE 67–118; RESP 18–28; TEMP 36.3–36.8; O2SAT 98–99
[2020-05-30] MEDS: VANCOMYCIN ORAL 125 MG/2.5 ML SYRUP PO ×4 (00:44→17:31)
[2020-05-30] MEDS: metroNIDAZOLE 250 MG TABLET 500 MG PO ×4 (00:44→17:29)
[2020-05-30 08:04] LABS: Basophils Absolute Auto 0.1 K/mm3 (0.0-0.1); Basophils Percent Auto 0.6 % (0.2-1.2); Eosinophils Absolute Auto 0.1 K/mm3 (0-0.3); Eosinophils Percent Auto 0.7 % (0-4.4); Hemoglobin 11.5 g/dL (14.0-18.0); Immature Granulocyte Absolute 0.09 K/mm3 (0.00-0.031); Immature Granulocyte Percent A 1.1 % (0-0.5); Lymphocytes Absolute Auto 1.38 K/mm3 (0.9-3.2); Lymphocytes Percent Auto 16.9 % (18.3-44.2); Mean Corpuscular HGB Conc 32.9 g/dl (32-36); Mean Corpuscular Hemoglobin 27.9 pg (26-34); Mean Platelet Volume 8.8 fl (7.4-10.4); Monocytes Absolute Auto 0.5 K/mm3 (0.1-0.6); Monocytes Percent Auto 6.5 % (2.6-8.5); Neutrophils Percent Auto 74.2 % (45.5-73.1); Platelet Count Result 242 k/mm3 (150-375); Red Blood Count 4.12 M/mm3 (4.6-6.20); Red Cell Distribution Width 18.5 % (11.5-14.5); White Blood Count 8.2 K/mm3 (4.5-10.0)
[2020-05-30 08:18] LABS: Alkaline Phosphatase 73 U/L (38-126); Aspartate Amino Transferase 9 U/L (17-59); Bilirubin,Total 0.3 mg/dL (0.2-1.3); Blood Urea Nitrogen 4 mg/dL (9-20); Calcium 7.2 mg/dL (8.4-10.2); Carbon Dioxide 17 mmol/L (22-30); Chloride 111 mmol/L (98-107); Estimated CRCL calculation 97 ml/min; Estimated Glomerular Filt Rate > 60; Glucose 101 mg/dL (75-110); Magnesium 1.6 mg/dL (1.6-2.3); Potassium 3.5 mmol/L (3.4-5.0); Sodium 135 mmol/L (137-145)
--- NOTE | 2020-05-30 08:42 | PC.NURSE ---
patient currently waiting for bed at [facility]. contacted bed placement at [facility] [phone]. [facility] is still full at this time and will call us when a bed is available.
[2020-05-30 08:44] LABS: Alanine Aminotransferase < 6 U/L (4-50)
[2020-05-30] MEDS: levETIRAcetam 1000MG/NACL100ML 1,000 MG/100 ML BAG 400 MG IVPB (10:17)
--- NOTE | 2020-05-30 11:13 | PM.IMPN ---
Progress Note: A&P Assessment and Plan (1) Seizure: Code(s): R56.9 - Unspecified convulsions Status: Acute Assessment and Plan: Today, patient had seizure-like activity witnessed by nursing staff with approximately 1-2 minutes of convulsions subsequent postictal state of confusion, similar to prior episodes. A&Ox4 during my visit. He was also noted to have seizure-like activity at his nursing facility and multiple other episodes earlier this stay; daily episodes. He has no history of seizures and the etiology of his recent seizures is unclear at this time. Possibly concern for pseudoseizure, meningitis less likely given VS/labs. Dr. Conner made aware and stated no seizure like activity on EEG. He rec continuing Keppra at 1000 mg Q12. Brain MRI notable for minimal microangiopathy. We are awaiting a bed at [facility]; patient accepted by hospitalist service Neurology has been consulted and their input is appreciated Dr. Conner recommended continuing Keppra to [address] Conner has cleared patient for discharge from his standpoint, however, I believe it is in patient's best interest to be transferred [facility] given his recurrent seizure-like episodes despite Keppra treatment Begin neuro checks Q4 Monitor electrolytes Continue seizure precautions and monitor closely Dr. Garcia, internal medicine from [facility], has graciously accepted patient; awaiting bed for transfer (2) Sepsis: Qualifiers: Acute renal failure type: unspecified Sepsis acute organ dysfunction status: with acute organ dysfunction Sepsis type: sepsis due to unspecified organism Severe sepsis acute organ dysfunction type: acute renal failure Severe sepsis shock status: without septic shock Qualified Code(s): A41.9 - Sepsis, unspecified organism; R65.20 - Severe sepsis without septic shock; N17.9 - Acute kidney failure, unspecified Code(s): A41.9 - Sepsis, unspecified organism Status: Resolved Assessment and Plan: Patient meets criteria for sepsis with tachycardia, tachypnea, and leukocytosis. Source of infection may be multifactorial given possible pneumonia on CXR, UA suggestive of UTI with chronic Lange, and chronic C diff colitis. Lactic acid is 1.4. VSS. He appears to run on the softer side. BCx NGTD x 2. UCx growing yeast; sensitivities requested Continue cefdinir and doxycycline; antibiotic treatment for PNA day 6 Will continue Diflucan for 7 days given UCx results growing yeast; day 4 of 7 of treatment course Will continue light IV fluids given decreased PO intake and soft BP sputum culture to be collected Continue to monitor vitals closely (3) Pneumonia: Qualifiers: Pneumonia type: due to unspecified organism Laterality: right Lung location: lower lobe of lung Qualified Code(s): J18.9 - Pneumonia, unspecified organism Code(s): J18.9 - Pneumonia, unspecified organism Status: Acute Assessment and Plan: Presumably related to aspiration pneumonia given previous history. CXR demonstrates bibasilar airspace disease consistent with pneumonia. He endorses chronic cough and occasional shortness of breath; SOB stable. He is maintaining adequate oxygenation on room air. He is afebrile. WBC is down to 8.2k today. ST recommends mildly thick liquids with minced and moist foods. Ur antigens negative. Blood cultures NGTD x2 Continue with cefdinir and doxycycline as above. Anticipate several more days of therapy Oxygen as needed to maintain saturation of 92% or above Supportive care with bronchodilators as needed, Mucinex, and acetaminophen as needed for fever Will attempt collection of sputum culture. (4) Urinary tract infection: Qualifiers: Urinary tract infection type: catheter-associated UTI Indwelling urinary catheter type: indwelling urethral catheter
[2020-05-30 12:58] LABS: Glucose Point of Care 126 (65-105)
[2020-05-30 12:58] LABS: Glucose Point of Care 93 (65-105)
[2020-05-30] MEDS: MEGESTROL ACETATE (*CHEMO) ORAL SUSP 40 MG/ML SYR 650 MG PO (13:10)
[2020-05-30] MEDS: POTASSIUM CHLORIDE 20 MEQ PACKET (FOR LIQUID) 40 MEQ PO (13:11)
[2020-05-30] MEDS: DOXYCYCLINE HYCLATE 100 MG TABLET PO (13:12)
[2020-05-30] MEDS: FLUCONAZOLE 100 MG TABLET PO (13:12)
[2020-05-30] MEDS: ENOXAPARIN 40 MG/0.4 ML SYRINGE SUB-Q (13:12)
[2020-05-30] MEDS: FINASTERIDE 5 MG TABLET PO (13:12)
[2020-05-30] MEDS: CEFDINIR 300 MG CAPSULE PO (13:13)
[2020-05-30] MEDS: OXYBUTYNIN CHLORIDE 5 MG TABLET PO (13:13)
[2020-05-30] MEDS: guaiFENesin 12 HR 600 MG TABCR PO (13:14)
[2020-05-30] MEDS: FAMOTIDINE 20 MG/2 ML VIAL IV PUSH (13:14)
[2020-05-30] MEDS: TRIAMCINOLONE ACET 0.1% OINT 15 GM TUBE 1 APPLIC TOPICAL ×2 (13:15→17:30)
[2020-05-30 18:48] LABS: Glucose Point of Care 107 (65-105)
--- NOTE | 2020-05-30 20:07 | PC.NURSE ---
Patient transferred to [facility] at 194.
--- NOTE | 2020-05-31 06:44 | PM.TDS ---
Transfer Discharge Sum: Prov Provider Date of admission: 05/25/20 14:09 Date of Transfer: 05/30/20 at roughly 1945 Accepting hospital/physician: [facility]/Dr. Garcia (internal medicine) Primary care physician: Rachid Rios DO Admitting clinician: José Manuel Hammond MD Consults: 05/25/20 Consult to Physician Routine Comment: DR. CONNER NOTIFIED Consulting Provider: Charlie Conner call taker/MD group to consult: Neurology Reason for consultation: Seizure Has provider been notified: Yes 05/26/20 Wound/ET Consult Routine Reason for Consult:: Maceration of bilateral buttocks per EMR records 05/27/20 Consult to Dietitian Routine Reason for Consult:: Failure to thrive; loss of appetite DS: Admitting Diagnosis Admitting Diagnosis Admitting Diagnosis: Seizure-like activity; Sepsis, chronic c. diff, UTI, PNA DS: Discharge Diagnosis Discharge Diagnosis (1) Seizure: Code(s): R56.9 - Unspecified convulsions Status: Acute Assessment and Plan: Today, patient had seizure-like activity witnessed by nursing staff with approximately 1-2 minutes of convulsions subsequent postictal state of confusion, similar to prior episodes. A&Ox4 during my visit. He was also noted to have seizure-like activity at his nursing facility and multiple other episodes earlier this stay; daily episodes. He has no history of seizures and the etiology of his recent seizures is unclear at this time. Possibly concern for pseudoseizure, meningitis less likely given VS/labs. Dr. Conner made aware and stated no seizure like activity on EEG. He rec continuing Keppra at 1000 mg Q12. Brain MRI notable for minimal microangiopathy. We are awaiting a bed at [facility]; patient accepted by hospitalist service Neurology has been consulted and their input is appreciated Dr. Conner recommended continuing Keppra to [address] Conner has cleared patient for discharge from his standpoint, however, I believe it is in patient's best interest to be transferred to [facility] given his recurrent seizure-like episodes despite Keppra treatment Begin neuro checks Q4 Monitor electrolytes Continue seizure precautions and monitor closely Dr. Garcia, internal medicine from [facility], has graciously accepted patient; awaiting bed for transfer (2) Sepsis: Qualifiers: Acute renal failure type: unspecified Sepsis acute organ dysfunction status: with acute organ dysfunction Sepsis type: sepsis due to unspecified organism Severe sepsis acute organ dysfunction type: acute renal failure Severe sepsis shock status: without septic shock Qualified Code(s): A41.9 - Sepsis, unspecified organism; R65.20 - Severe sepsis without septic shock; N17.9 - Acute kidney failure, unspecified Code(s): A41.9 - Sepsis, unspecified organism Status: Resolved Assessment and Plan: Patient meets criteria for sepsis with tachycardia, tachypnea, and leukocytosis. Source of infection may be multifactorial given possible pneumonia on CXR, UA suggestive of UTI with chronic Lange, and chronic C diff colitis. Lactic acid is 1.4. VSS. He appears to run on the softer side. BCx NGTD x 2. UCx growing yeast; sensitivities requested Continue cefdinir and doxycycline; antibiotic treatment for PNA day 6 Will continue Diflucan for 7 days given UCx results growing yeast; day 4 of 7 of treatment course Will continue light IV fluids given decreased PO intake and soft BP sputum culture to be collected Continue to monitor vitals closely (3) Pneumonia: Qualifiers: Laterality: right Lung location: lower lobe of lung Pneumonia type: due to unspecified organism Qualified Code(s): J18.9 - Pneumonia, unspecified organism Code(s): J18.9 - Pneumonia, unspecified organism Status: Acute Assessment and Plan: Presumably related to aspiration pneumonia given previous history.
== END 2020-05-30 19:50 | disposition short-term general hospital (02) | DRG 698 ==
LOC: ANHED 14:12 → ANH3MEDSUR 15:09
PROVIDERS: Physician Assistant; Admitting Provider Internal Medicine; Emergency Provider General Practice; PCP Internal Medicine; Visit Provider Physician Assistant
DX: T83.511A Infection and inflammatory reaction due to indwelling urethral catheter, initial encounter (principal); A41.9 Sepsis, unspecified organism; J69.0 Pneumonitis due to inhalation of food and vomit; R65.20 Severe sepsis without septic shock; N17.9 Acute kidney failure, unspecified; A04.72 Enterocolitis due to Clostridium difficile, not specified as recurrent; F84.5 Asperger's syndrome; N39.0 Urinary tract infection, site not specified; Z20.828 Contact with and (suspected) exposure to other viral communicable diseases; R56.9 Unspecified convulsions; E87.6 Hypokalemia; R62.7 Adult failure to thrive; Z68.20 Body mass index [BMI] 20.0-20.9, adult; L98.8 Other specified disorders of the skin and subcutaneous tissue
CPT/HCPCS: 36415; 36600; 70450; 70551; 71045; 80048; 80053; 80076; 81001; 82375; 82805; 83050; 83605; 83735; 85025; 85610; 85730; 87040; 87086; 87106; 87186; 87449; 87635; 87899; 92610; 93005; 95816; 96361; 96365; 96375; 99285; A9270; C9803; J0456; J0696; J1650; J1953; J2060; J2543; J3360; J3475; J7030; J7042; U0003

== ENCOUNTER 2020-06-28 12:14 | Emergency (ER) | payer MEDICARE, MEDICAID, SELFPAY ==
--- NOTE | ~2020-06-28 | XR_ITS ---
EXAMINATION: XR chest 1V portable EXAM DATE: 06/28/2020 13:02 INDICATION: shortness of breath. Discharge is clear with pneumonia. TECHNIQUE: Portable AP frontal chest x-ray was obtained. Comparison is made to prior examination from 05/25/2020. FINDINGS: Persistent bibasilar medial segmental airspace disease, atelectasis or pneumonia. The lungs are otherwise clear. There are no pleural effusions. The cardiomediastinal silhouette is within no rmal limits. There is no pneumothorax suspected. 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 IMPRESSION: Persistent bibasilar medial segmental pneumonia and/or atelectasis. Reviewed, dictated and finalized at location A.
[2020-06-28 12:14] VITALS: BP 116/73; PULSE 83; RESP 18; TEMP 36.8; O2SAT 96
--- NOTE | 2020-06-28 12:19 | ECG_ITS ---
Measurements Intervals [place] Rate: 84 P: 24 MS: 159 QRS: -12 QRSD: 97 T: 109 QT: 411 QTc: 488 Interpretive Statements SINUS RHYTHM DELAYED PRECORDIAL R/S TRANSITION NONSPECIFIC T-WAVE ABNORMALITY- HIGH LATERAL LEADS BASELINE ARTIFACT- V1 BORDERLINE ECG Electronically Signed On 06-28-2020 13:46:17 CDT by Silverio García D.O.
[2020-06-28 12:46] VITALS: BP 111/61; PULSE 83; RESP 16; O2SAT 97
--- NOTE | 2020-06-28 12:56 | ED.SOB ---
HPI - SOB/Dyspnea General Chief Complaint: Shortness of Breath/Dyspnea Stated Complaint: sob Time Seen by Provider: 06/28/20 12:44 History of Present Illness HPI Narrative: Just discharged from [facility] after a long complicated hospital course including a sepsis, pneumonia, and C. Diff. He is currently in rehab and today after therapy for his breathing he began to feel as if he could not take a deep breath. No real SOB. No chest pain. No fever. It does not appear that he is still on antibiotics for pneumonia. He does report ongoning diarrhea. He is still on PO vanc. Related Data Home Medications Medication Instructions Recorded Confirmed finasteride 5 mg tablet 5 mg PO DAILY 10/16/19 05/29/20 mirabegron 50 mg tablet,extended 50 mg PO DAILY 10/16/19 05/29/20 release 24 hr triamcinolone acetonide 0.1 % 1 applic TOPICAL BID 10/16/19 05/25/20 topical ointment acetaminophen 1,000 mg PO Q6H PRN 05/29/20 05/29/20 acidophilus-pectin, citrus 2 cap PO BID 05/29/20 05/29/20 [Acidophilus Probiotic] atorvastatin 10 mg PO HS 05/29/20 05/29/20 baclofen 5 mg PO Q8H 05/29/20 05/29/20 benzonatate 100 mg PO TID 05/29/20 05/29/20 guaifenesin 200 mg PO Q6H PRN 05/29/20 05/29/20 megestrol 625 mg PO DAILY 05/29/20 05/29/20 metronidazole [Flagyl] 500 mg PO Q6H 05/29/20 05/29/20 mirtazapine [Remeron] 15 mg PO HS 05/29/20 05/29/20 oxybutynin chloride 5 mg PO DAILY 05/29/20 05/29/20 pentosan polysulfate sodium 100 mg PO TIDWMEAL 05/29/20 05/29/20 [Elmiron] vancomycin 125 mg PO Q6H 05/29/20 05/29/20 albuterol sulfate 5 mg INHALATION Q6H PRN 06/28/20 carbidopa-levodopa 2 tablet PO TID 06/28/20 carboxymethylcellulose sodium 06/28/20 [Artificial Tears (cmc)] folic acid 1 mg PO DAILY 06/28/20 lacosamide [Vimpat] 200 mg PO Q12H 06/28/20 levetiracetam 1,500 mg PO BID 06/28/20 melatonin 3 mg PO HS PRN 06/28/20 sodium chloride INTRANASAL 06/28/20 Allergies Allergy/AdvReac Type Severity Reaction Status Date / Time metronidazole [From Flagyl] Allergy Severe Difficulty Verified 06/28/20 14:21 Breathing rivaroxaban [From Xarelto] AdvReac Other Verified 06/28/20 12:17 Review of Systems Review of Systems: All systems reviewed & are unremarkable except as noted in HPI and below Constitutional: Constitutional: Denies fever(s) ENT: Denies sore throat Cardiovascular: Cardiovascular: Denies chest pain Respiratory: Respiratory: Denies cough Gastrointestinal: Gastrointestinal: Denies abdominal pain PMFSH Past Medical History Medical History Anemia Asperger syndrome C. difficile colitis Chronic, awaiting fecal transplant Chicken pox Chronic interstitial cystitis Dysphagia Failure to thrive Frequent urinary tract infections Hyperlipidemia Hypertension Osteoarthritis Vitamin D deficiency Surgical History Surgical History History of bladder surgery History of right hip replacement History of tonsillectomy Family History Family History Mother Family history of malignant neoplasm of esophagus, Onset Age: 76 Father CAD (coronary artery disease) Hypertension HLD (hyperlipidemia) Diabetes mellitus Grandparent Cerebrovascular accident CAD (coronary artery disease) Kidney disease Social History Social History Social History: He resides at [facility]. His primary care provider is Dr. Rachid Rios. He designates his sister, Karin Olivares, as his surrogate decision maker and he wishes to be a full code. Smoking status: Never smoker Alcohol intake: former Drinks per week: 1 Substance use: never Gender identity (if verbalized by the patient): Male Spiritual care concerns: No Agree to blood products: Yes Course Vital Signs Vital signs: Vital Signs Temp
[2020-06-28 13:47] VITALS: BP 115/69; PULSE 83; RESP 19; O2SAT 97
[2020-06-28 13:49] LABS: Basophils Absolute Auto 0.1 K/mm3 (0.0-0.1); Basophils Percent Auto 0.6 % (0.2-1.2); Eosinophils Absolute Auto 0.3 K/mm3 (0-0.3); Eosinophils Percent Auto 2.1 % (0-4.4); Hematocrit 32.5 % (42.0-52.0); Hemoglobin 10.2 g/dL (14.0-18.0); Immature Granulocyte Absolute 0.18 K/mm3 (0.00-0.031); Immature Granulocyte Percent A 1.5 % (0-0.5); Lymphocytes Absolute Auto 1.59 K/mm3 (0.9-3.2); Lymphocytes Percent Auto 13.1 % (18.3-44.2); Mean Corpuscular HGB Conc 31.4 g/dl (32-36); Mean Corpuscular Hemoglobin 29.7 pg (26-34); Mean Corpuscular Volume 94.8 fl (80-100); Mean Platelet Volume 8.8 fl (7.4-10.4); Monocytes Percent Auto 8.1 % (2.6-8.5); Neutrophils Absolute Auto 9.1 K/mm3 (1.3-6.7); Neutrophils Percent Auto 74.6 % (45.5-73.1); Platelet Count Result 488 k/mm3 (150-375); Red Blood Count 3.43 M/mm3 (4.6-6.20); Red Cell Distribution Width 18.5 % (11.5-14.5); White Blood Count 12.2 K/mm3 (4.5-10.0)
[2020-06-28 13:54] LABS: Anion Gap 14.4 mmol/L (7-16); Blood Urea Nitrogen 18 mg/dL (9-20); Calcium 9.9 mg/dL (8.4-10.2); Carbon Dioxide 28 mmol/L (22-30); Chloride 101 mmol/L (98-107); Estimated CRCL calculation 148 ml/min; Estimated Glomerular Filt Rate > 60; Glucose 100 mg/dL (75-110); Potassium 4.4 mmol/L (3.4-5.0); Sodium 139 mmol/L (137-145)
[2020-06-28 14:21] VITALS: BP 114/65; PULSE 83; RESP 22; O2SAT 100
[2020-06-28 15:43] VITALS: BP 126/60; PULSE 86; RESP 18; O2SAT 98
--- NOTE | 2020-06-28 16:00 | PC.NURSE ---
1539: CALLED [facility] TO TRANSPORT BACK TO [facility] N&R...ETA 1900 1548: CALLED [facility] TO TRANSPORT BACK TO [facility] N&R...ETA 45 MINUTES.
--- NOTE | 2020-06-28 16:47 | PC.NURSE ---
rn report given to [facility].
== END 2020-06-28 16:47 ==
PROVIDERS: Emergency Provider Emergency Medicine; PCP Internal Medicine
DX: R06.02 Shortness of breath (principal); Z87.891 Personal history of nicotine dependence; Z96.641 Presence of right artificial hip joint; F84.5 Asperger's syndrome; Z87.440 Personal history of urinary (tract) infections; E78.5 Hyperlipidemia, unspecified; I10 Essential (primary) hypertension; M19.90 Unspecified osteoarthritis, unspecified site; E55.9 Vitamin D deficiency, unspecified; D64.9 Anemia, unspecified; R94.31 Abnormal electrocardiogram [ECG] [EKG]
CPT/HCPCS: 36415; 71045; 80048; 85025; 93005; 99284

== ENCOUNTER 2020-07-22 09:53 | Outpatient (CLI) | payer OTHER, MEDICARE, MEDICAID, SELFPAY ==
--- NOTE | ~2020-07-22 | XR_ITS ---
EXAMINATION: XR barium swallow modified EXAM DATE: 07/22/2020 10:54 INDICATION: Dysphagia. TECHNIQUE: Modified barium esophagram was performed by myself to administered fluoroscopy, in conjun ction with speech pathologist who administered barium in varying consistencies as per speech patholog ist documentation. This was recorded on tape. The DAP for this procedure was 1.1 Gycm2. FINDINGS: Oral stage: Adequate function. Pharyngeal phase: Vallecular residual. Laryngeal penetration: Demonstrated. Aspiration: Demonstrated, silent. Laryngeal sensitivity: Absent. IMPRESSION: Aspiration demonstrated; Please refer to speech pathologist findings and specific feedin g recommendations. Reviewed, dictated and finalized at location A. IMPRESSION: Aspiration demonstrated; Please refer to speech pathologist findin gs and specific feeding recommendations.
--- NOTE | 2020-07-22 16:22 | STOPEVAL ---
MODIFIED BARIUM SWALLOW; Thank you for referring Lam James to [facility].? Attending Provider: Kary Baker MD Referring RECORD SYSTEMS ANALYST from [facility]: Idania Celestin: fax # [phone] *ST Outpatient Evaluation Start: 07/22/20 15:55 Freq: Status: Active Protocol: Document 07/22/20 15:55 BECHERERT (Rec: 07/22/20 16:22 BECHERERT [email or web address]) Therapy Assessment Status Assessment Status Assessment Status Evaluation Outpatient Past Medical History Past Medical History Source of Past Medical History Patient Neurological History Hx Seizures Yes: RECENT Cardiovascular History Hx Cardiac Disorders No Significant History Respiratory History Hx Pneumonia Yes Gastrointestinal History Hx Gastroesophageal Reflux Disease Yes Hx Hemorrhoids Yes Hx Hernia Yes: ABDOMINAL NEAR UMBILICAL Hx Polyps Yes Hx Other Gastrointestinal Disorders Yes: hx of C-diff Genitourinary History Hx Bladder Surgery Yes: x2 bladder enlargment Hx Urinary Tract Infection Yes Hx Other Genitourinary Disorders Yes: 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 Musculoskeletal History Hx Arthritis Yes: L hip Hx Joint Replacement Yes: right hip replacement, titanium lasha Hx Orthopedic Surgery Yes Hematological History Hx Hematological Disorders No Significant History Endocrine History Hx Endocrine Disorders No Significant History HEENT History Hx Tonsillectomy Yes Hx Sinus Problems Yes: seasonal allergies Integumentary History Hx Skin Disorders No Significant History Reproductive History Hx Reproductive Disorders No Significant History Psychosocial History Hx Psychiatric Disorders No Significant History Pain History History of Any Previous or Ongoing No Significant History Instance of Pain Anesthesia History Hx Anesthesia Reactions No Significant History Other History Hx Clostridium Difficile Yes Pain Assessment Timing of Pain Assessment Timing of Pain Assessment Assessment Self Report Self Report Pain Level 0 Pain Score Pain Score 0: Self Report Modified Barium Swallow Evaluation Recent Swallowing History Reports Dysphagia Yes Onset of Dysphagia since I had C DIFF Reported Difficult Consistencies Thin Liquids,Thick Liquids, Pureed,Liquid/Solid Mix,Pills, Solids Intake Method Prior to Swallow Gastrostomy,NPO Evaluation Consistency Mildly Thick Other Amount small sip Method of Presentation Cup Oral Preparatory Symptoms Within Functional Limits Oral Phase Symptoms Within Functional Limits Pharyngeal Pha
== END 2020-07-22 09:54 | disposition home or self-care (01) ==
PROVIDERS: PCP Internal Medicine; Visit Provider Family Medicine
DX: R13.10 Dysphagia, unspecified (principal)
CPT/HCPCS: 92611